=== PATIENT | female | born 1980 | race American Indian/Alaskan Native ===

== ENCOUNTER 2017-11-05 02:49 | Inpatient (IN) | payer MEDICAID ==
[2017-11-05] MEDS ORDERED: NARCAN 0.4 MG/1 ML IV PRN (04:34)
[2017-11-05] MEDS ORDERED: MINERAL OIL PO PRN (04:34)
[2017-11-05] MEDS ORDERED: XYLOCAINE 2% INFILTRATI ONE (04:34)
[2017-11-05] MEDS ORDERED: ZOFRAN IV PRN ×2 (04:34→14:47)
[2017-11-05] MEDS ORDERED: STADOL IV PRN (04:34)
[2017-11-05] MEDS ORDERED: POLYCILLIN/NS 2 GM/100 ML 2 GM/100 ML BAG IV ONE (04:34)
[2017-11-05] MEDS ORDERED: BRETHINE IVP PRN (04:34)
[2017-11-05] MEDS ORDERED: BRETHINE SUB-Q PRN (04:34)
--- NOTE | 2017-11-05 04:40 | History and Physical Report ---
History of Present Illness Date of examination: 11/05/17 Chief complaint: uterine contractions History of present illness: 37yo 38 5/7 wks LMP presented in active labor dilated /-1, GBS unknown. Her history is significant for a gestational hypertension and was being evaluated for preeclampsia at last visit last week. She was noted to have elevated BPs 180/100s therefore preeclampsia protocol was initiated with magnesium sulfate and hydralazine. She denies headaches, visual changes or RUQ pain. She is a patient of Dr. Valerie Powell'shoshana at [facility]. Her records are currently unavailable. Past History - Obstetrical History : 2 Medications and Allergies Allergies Allergy/AdvReac Type Severity Reaction Status Date / Time No Known Allergies Allergy Unverified 11/05/17 02:51 - Vital Signs Vital signs: Vital Signs Pulse Pulse Ox 74 98 11/05/17 03:03 11/05/17 03:03 Temp Pulse Resp BP Pulse Ox 68 178/88 98 11/05/17 04:28 11/05/17 04:28 11/05/17 03:18 Results Result Diagrams: 11/05/17 04:34 All other labs normal.
[2017-11-05 04:59] LABS: Hematocrit 33.1 % (30.3-42.9); Hemoglobin 11.2 gm/dl (10.1-14.3); Mean Corpuscular HGB Conc 34 % (30-34); Mean Corpuscular Hemoglobin 28 pg (28-32); Mean Corpuscular Volume 83 fl (79-97); Platelet Count 230 K/mm3 (140-440); Red Blood Count 3.98 M/mm3 (3.65-5.03); Red Cell Distribution Width 13.6 % (13.2-15.2)
[2017-11-05] MEDS ORDERED: PITOCin/NS 30 UNIT/500ML 30 UNITS/500 ML BAG IV SCH (05:00)
[2017-11-05] MEDS ORDERED: LACTATED RINGERS 1,000 ML IV SCH ×3 (05:00→22:00)
[2017-11-05] MEDS ORDERED: PITOCin/NS 20 UNIT/1000ML DRIP 20 UNITS/1,000 ML BAG IV SCH (05:00)
[2017-11-05] MEDS ORDERED: MAGNESIUM SULFATE 4GM/100ML 4 GM/100 ML BAG IV ONE ×2 (05:04→05:07)
[2017-11-05] MEDS ORDERED: MAGNESIUM SULFATE 40GM/1000ML 40 GM/1,000 ML BAG IV ONE (05:04)
[2017-11-05 05:11] LABS: Alanine Aminotransferase 17 units/L (7-56); Albumin 3.4 g/dL (3.9-5); BUN/Creatinine Ratio 17; Blood Urea Nitrogen 10 mg/dL (7-17); Hemolysis Index 45
[2017-11-05] MEDS: APRESOLINE IV PRN ×3 (05:30→12:39)
[2017-11-05] MEDS ORDERED: MAGNESIUM SULFATE 40GM/1000ML 40 GM/1,000 ML BAG IV SCH ×2 (06:00→22:00)
[2017-11-05 06:09] LABS: Uric Acid 4.7 mg/dL (3.5-7.6)
[2017-11-05 06:56] LABS: Bilirubin,Direct < 0.2 mg/dL (0-0.2)
[2017-11-05] MEDS ORDERED: NARCAN 2 MG/2 ML IV PRN (08:02)
[2017-11-05] MEDS ORDERED: fentaNYL-BUPIV 2 MCG/ML-0.125% 200 MCG/100 ML BAG EPIDURAL SCH (09:00)
--- NOTE | 2017-11-05 13:59 | Progress Note ---
Assessment and Plan (1) 38 or more weeks gestation of Current Visit: Yes Status: Acute (2) Hypertension affecting in third trimester Current Visit: Yes Status: Acute Plan to address problem: Co-managed with Dr. Verdin Continue magnesium sulfate therapy 2 gram/hr Start Tylenol 1000mg PO q8hr prn headache Continue routine BP check, magnesium level, DTRs, strict I&Os (3) Active labor Current Visit: Yes Status: Acute Plan to address problem: Continue routine labor orders Pitocin Augmentation Plan to redose epidural, Insert IUPC, and allow pt to labor down Subjective - Subjective Date of service: 11/05/17 Principal diagnosis: IUP 38w6d, Active labor, PIH Patient reports: vaginal bleeding (normal show), movement normal, contractions Objective - Vital Signs Vital Signs: Vital Signs - 12hr 11/05/17 11/05/17 11/05/17 03:03 03:05 03:08 Temperature Pulse Rate 74 71 82 Blood Pressure 158/102 O2 Sat by Pulse 98 97 Oximetry 11/05/17 11/05/17 11/05/17 03:13 03:18 03:22 Temperature Pulse Rate 72 78 70 Blood Pressure 205/109 O2 Sat by Pulse 98 98 Oximetry 11/05/17 11/05/17 11/05/17 03:30 03:56 04:08 Temperature Pulse Rate 80 68 65 Blood Pressure 180/95 166/91 169/87 O2 Sat by Pulse Oximetry 11/05/17 11/05/17 11/05/17 04:18 04:28 04:50 Temperature Pulse Rate 66 68 75 Blood Pressure 170/90 178/88 197/100 O2 Sat by Pulse Oximetry 11/05/17 11/05/17 11/05/17 05:03 05:19 05:47 Temperature Pulse Rate 73 72 78 Blood Pressure 185/99 170/96 153/80 O2 Sat by Pulse Oximetry 11/05/17 11/05/17 11/05/17 06:17 06:48 07:18 Temperature Pulse Rate 88 85 92 H Blood Pressure 149/79 166/86 161/92 O2 Sat by Pulse Oximetry 11/05/17 11/05/17 11/05/17 07:33 07:45 07:46 Temperature Pulse Rate 96 H 94 H 93 H Blood Pressure 162/98 O2 Sat by Pulse 94 93 Oximetry 0811/05/17 11/05/17 07:48 08:00 08:18 Temperature 99.1 F Pulse Rate 97 H 122 H Blood Pressure 163/96 176/101 O2 Sat by Pulse Oximetry 11/05/17 11/05/17 11/05/17 08:24 08:26 08:30 Temperature Pulse Rate 108 H 109 H 103 H Blood Pressure 151/83 142/82 141/83 O2 Sat by Pulse Oximetry 11/05/17 11/05/17 11/05/17 08:35 08:39 08:44 Temperature Pulse Rate 122 H 103 H 104 H Blood Pressure 123/83 110/68 109/67 O2 Sat by Pulse Oximetry 11/05/17 11/05/17 11/05/17 08:50 09:09 09:22 Temperature Pulse Rate 93 H 102 H 94 H Blood Pressure 126/70 142/89 144/83 O2 Sat by Pulse Oximetry 11/05/17 11/05/17 11/05/17 09:38 09:53 09:54 Temperature Pulse Rate 93 H 91 H 93 H Blood Pressure 172/91 168/87 154/89 O2 Sat by Pulse Oximetry 11/05/17 11/05/17 11/05/17 10:09 10:24 10:26 Temperature Pulse Rate 92 H 95 H 90 Blood Pressure 200/98 181/100 193/102 O2 Sat by Pulse Oximetry 11/05/17 11/05/17 11/05/17 10:27 10:32 10:38 Temperature Pulse Rate 90 101 H 108 H Blood Pressure 193/102 156/88 166/86 O2 Sat by Pulse Oximetry 11/05/17 11/05/17 11/05/17 10:45 10:52 11:00 Temperature 98.7 F Pulse Rate 115 H 106 H Blood Pressure 171/93 149/80 O2 Sat by Pulse Oximetry 11/05/17 11/05/17 11/05/17 11:09 11:25 11:39 Temperature Pulse Rate 105 H 118 H 108 H Blood Pressure 164/89 142/83 157/84 O2 Sat by Pulse Oximetry 11/05/17 11/05/17 11/05/17 11:53 12:07 12:23 Temperature Pulse Rate 108 H 113 H 125 H Blood Pressure 157/86 156/90 140/82 O2 Sat by Pulse Oximetry 11/05/17 11/05/17 11/05/17 12:39 12:41 12:43 Temperature Pulse Rate 123 H 123 H 113 H Blood Pressure 170/97 170/97 162/91 O2 Sat by Pulse Oximetry 11/05/17 11/05/17 11/05/17 12:53 13:08 13:09 Temperature 98.8 F Pulse Rate 123 H 116 H Blood Pressure 146/80 132/67 O2 Sat by Pulse Oximetry 11/05/17 11/05/17 11/05/17 13:24 13:40 13:53 Temperature Pulse Rate 131 H 117 H 125 H Blood Pressure 139/72 136/70 117/59 O2 Sat by Pulse Oximetry - Exam Breasts: normal Cardiovascular: Regular rate, Normal S1, Normal S2, No murmurs Lungs: Clear to auscultation, Normal air movement Abdomen: Present: normal appearance, soft, normal bowel sounds. Absent: distention, tenderness Vulva: both: normal Uterus: Present: normal (Enlarged (gravid)) FHR: category 1 Uterine Contraction Monitor Mode: External Cervical Dilatation: 10 Cervical Effacement Percentage: 100 station: -2 Uterine Contraction Frequency (min): 2-4 Uterine Contraction Duration: 60-140 Uterine Contraction Pattern: Regular Uterine Tone Measurement Phase: Resting Uterine Contraction Intensity: Strong/Firm Extremities: normal Deep Tendon Reflex Grade: Normal +2 - Labs Labs: Abnormal Labs 11/05/17 11/05/17 04:34 04:34 Sodium 136 L Carbon Dioxide 19 L Creatinine 0.6 L Alkaline Phosphatase 154 H Lactate Dehydrogenase 250 H Albumin 3.4 L Laboratory Results - last 24 hr 11/05/17 11/05/17 11/05/17 04:34 04:34 04:34 WBC 7.8 RBC 3.98 Hgb 11.2 Hct 33.1 MCV 83 MCH 28 MCHC 34 RDW 13.6 Plt Count 230 Sodium Potassium Chloride Carbon Dioxide Anion Gap BUN Creatinine Estimated GFR BUN/Creatinine Ratio Glucose Uric Acid Calcium Total Bilirubin Direct Bilirubin Indirect Bilirubin AST ALT Alkaline Phosphatase Lactate Dehydrogenase Total Protein Albumin Albumin/Globulin Ratio RPR Nonreactive Hep Bs Antigen HIV 1&2 Antibody Rapid HIV P24 Antigen Rubella IgG Antibody Blood Type A POSITIVE Antibody Screen Negative 11/05/17 11/05/17 11/05/17 04:34 04:34 04:34 WBC RBC Hgb Hct MCV MCH MCHC RDW Plt Count Sodium 136 L Potassium 4.1 Chloride 101.0 Carbon Dioxide 19 L Anion Gap 20 BUN 10 Creatinine 0.6 L Estimated GFR > 60 BUN/Creatinine Ratio 17 Glucose 87 Uric Acid 4.7 Calcium 9.0 Total Bilirubin 0.30 Direct Bilirubin < 0.2 Indirect Bilirubin 0.1 AST 23 ALT 17 Alkaline Phosphatase 154 H Lactate Dehydrogenase 250 H Total Protein 6.6 Albumin 3.4 L Albumin/Globulin Ratio 1.1 RPR Hep Bs Antigen HIV 1&2 Antibody Rapid HIV P24 Antigen Rubella IgG Antibody Immune Blood Type Antibody Screen 11/05/17 11/05/17 04:34 04:34 WBC RBC Hgb Hct MCV MCH MCHC RDW Plt Count Sodium Potassium Chloride Carbon Dioxide Anion Gap BUN Creatinine Estimated GFR BUN/Creatinine Ratio Glucose Uric Acid Calcium Total Bilirubin Direct Bilirubin Indirect Bilirubin AST ALT Alkaline Phosphatase Lactate Dehydrogenase Total Protein Albumin Albumin/Globulin Ratio RPR Hep Bs Antigen Non-reactive HIV 1&2 Antibody Rapid Non react HIV P24 Antigen Non react Rubella IgG Antibody Blood Type Antibody Screen
[2017-11-05] MEDS ORDERED: PHENERGAN PO PRN (14:47)
[2017-11-05] MEDS ORDERED: LANSINOH TP PRN (14:47)
[2017-11-05] MEDS ORDERED: TYLENOL PO PRN (14:47)
[2017-11-05] MEDS ORDERED: BENADRYL PO PRN (14:47)
[2017-11-05] MEDS ORDERED: TUCKS PAD TP PRN (14:47)
[2017-11-05] MEDS ORDERED: NORCO 5/325 PO PRN (14:47)
--- NOTE | 2017-11-05 14:56 | Procedure Note ---
OB Delivery Note - Delivery Date of Delivery: 11/05/17 (14:32) Surgeon: ISIDORO ZARATE (KEVIN) Estimated blood loss: 200cc - Vaginal Delivery presentation: vertex Delivery position: OA Intrapartum events: other(please specify) (PIH, [id number]) Delivery induction: none Delivery augmentation: pitocin Delivery monitor: external FHT, external uterine Route of delivery: (14:32) Delivery placenta: spontaneous (14:35) Delivery cord: 3 umbilical vessels Episiotomy: none Delivery laceration: none Anesthesia: epidural Delivery comments: viable male infant JODI position over intact perineum under epidural anesthesia at 14:32. Infant less vigorous d/t MgS04. Cord clamped, cut, and placed in pre-warmed RW for evaluation NICU/RT (MgS04). Spontaneous howard delivery of intact placenta at 14:35. FF@U-2. No tears or lacerations. Bleeding small. and mother left in stable condition in L&D. GBS Negative
[2017-11-05] MEDS ORDERED: SODIUM CHLORIDE FLUSH SYRINGE 10 ML IV NR (15:00)
[2017-11-05] MEDS ORDERED: MILK OF MAGNESIA PO PRN (22:00)
[2017-11-05] MEDS ORDERED: DULCOLAX PR PRN (22:00)
[2017-11-05] MEDS: NORMODYNE PO SCH (22:30)
[2017-11-06 06:54] LABS: Hematocrit 27.9 % (30.3-42.9); Hemoglobin 9.5 gm/dl (10.1-14.3)
--- NOTE | 2017-11-06 10:09 | Progress Note ---
Assessment and Plan - Patient Problems (1) 38 weeks gestation of Current Visit: Yes Status: Acute (2) Pre-eclampsia Current Visit: Yes Status: Acute Plan to address problem: Continue magnesium sulfate. Mg level ordered. Will D/C Mg at 2 PM today. Continue to monitor BP, DTRs, mg level, urine output. (3) (normal spontaneous vaginal delivery) Current Visit: Yes Status: Acute Plan to address problem: Continue routine care. Subjective - Subjective Date of service: 11/06/17 Principal diagnosis: IUP 38w6d, Active labor, PIH Interval history: Patient is S/P yesterday. She has been on magnesium for pre-eclampsia. BP has been stable. She is on labetolol. Objective - Vital Signs Latest vital signs: Vital Signs Temp Pulse Resp BP BP Pulse Ox 11/06/17 07:30 97.6 F 79 16 149/85 98 11/06/17 06:00 98.4 F 69 16 112/66 11/06/17 04:00 98.7 F 72 16 101/74 11/06/17 03:10 98.7 F 69 18 117/64 11/06/17 01:00 98.7 F 74 16 127/71 11/05/17 23:00 98.7 F 81 16 134/80 11/05/17 22:30 84 134/74 11/05/17 21:30 98.6 F 81 18 144/88 11/05/17 19:30 98.7 F 117 H 18 146/100 11/05/17 17:03 164/94 11/05/17 16:15 97.6 F 98 H 18 188/99 99 11/05/17 15:38 99 H 166/81 11/05/17 15:31 98.7 F 11/05/17 15:23 110 H 133/75 11/05/17 15:08 107 H 141/75 11/05/17 14:53 114 H 110/59 11/05/17 14:44 100 H 117/58 11/05/17 14:08 117 H 112/58 11/05/17 13:53 125 H 117/59 11/05/17 13:40 117 H 136/70 11/05/17 13:24 131 H 139/72 11/05/17 13:09 98.8 F 11/05/17 13:08 116 H 132/67 11/05/17 12:53 123 H 146/80 11/05/17 12:43 113 H 162/91 11/05/17 12:41 123 H 170/97 11/05/17 12:39 123 H 170/97 11/05/17 12:23 125 H 140/82 11/05/17 12:07 113 H 156/90 11/05/17 11:53 108 H 157/86 11/05/17 11:39 108 H 157/84 11/05/17 11:25 118 H 142/83 11/05/17 11:09 105 H 164/89 11/05/17 11:00 98.7 F 11/05/17 10:52 106 H 149/80 11/05/17 10:45 115 H 171/93 11/05/17 10:38 108 H 166/86 11/05/17 10:32 101 H 156/88 11/05/17 10:27 90 193/102 11/05/17 10:26 90 193/102 11/05/17 10:24 95 H 181/100 11/05/17 10:09 92 H 200/98 Intake and Output 11/05/17 11/06/17 11/06/17 23:59 07:59 15:59 Intake Total 500 300 Output Total 2800 3200 Balance -2300 -2900 Intake: Oral 200 Intake, Free Water 300 300 Output: Urine 2800 3200 Indwelling Catheter 2000 3200 Void 800 Other: Total, Intake Amount 200 Total, Output Amount 1600 1600 # Voids Void 1 - Exam Cardiovascular: Present: Normal S1, Normal S2 Lungs: Present: Clear to auscultation Vulva: both: normal Deep Tendon Reflex Grade: Normal +2 - Labs Labs: Abnormal lab results 11/06/17 Range/Units 05:53 Hgb 9.5 L (10.1-14.3) gm/dl Hct 27.9 L (30.3-42.9) %
[2017-11-06] MEDS: NORMODYNE PO SCH ×2 (11:41→21:56)
[2017-11-06] MEDS: MOTRIN PO SCH (23:12)
[2017-11-07] MEDS: MOTRIN PO SCH (05:25)
--- NOTE | 2017-11-07 11:56 | Progress Note ---
Assessment and Plan - Patient Problems (1) (normal spontaneous vaginal delivery) Onset Date: 11/07/17 Current Visit: Yes Status: Resolved Plan to address problem: A: S/P - PPD #2 Doing well PIH - improved s/p Magnesium sulfate and PO Labetolol 200mg BID P: May go home today. (2) Pre-eclampsia Onset Date: 11/07/17 Current Visit: Yes Status: Resolved Qualifiers: Trimester: third trimester Qualified Code(s): O14.93 - Unspecified pre- eclampsia, third trimester Subjective - Subjective Date of service: 11/07/17 Principal diagnosis: s/p - PPD #2 Interval history: Pt is feeling well without complaints. Bleeding improved. Denies headaches or blurred vision. Patient reports: appetite normal, voiding normally, pain well controlled, flatus , ambulating normally, no dizzy ambulation, no nauseated [place]: doing well, bottle feeding Objective - Vital Signs Latest vital signs: Vital Signs Temp Pulse Resp BP BP Pulse Ox 11/07/17 00:50 98.6 F 77 20 135/71 97 11/06/17 21:56 77 136/79 11/06/17 21:45 78 20 136/79 97 11/06/17 17:50 98.0 F 80 16 152/85 98 Intake and Output 11/06/17 11/07/17 11/07/17 22:59 06:59 14:59 Intake Total 480 Balance 480 Intake: Oral 480 Other: Total, Intake Amount 240 # Voids Void 1 - Exam Breasts: Present: deferred Cardiovascular: Present: Regular rate Lungs: Present: Clear to auscultation Abdomen: Present: normal appearance, soft Uterus: Present: normal, firm, fundal height below umbilicus Extremities: Present: normal
--- NOTE | 2017-11-07 12:09 | Discharge Summary ---
Providers - Providers Date of Admission: 11/05/17 04:38 Date of discharge: 11/07/17 Attending physician: BRIAN MONTANO Primary care physician: BRIAN MONTANO Hospitalization Reason for admission: active labor, IUP at term, other (Preeclampsia) Delivery: Episiotomy: none Laceration: none Other procedures: none complications: none Discharge diagnosis: IUP at term delivered [place] baby: male Hospital course: Unremarkable except for suspected preeclampsia - treated with IV Magensium sulfates and PO Labetolol 200mg BID. Condition at discharge: Good Disposition: DC-01 TO HOME OR SELFCARE - Discharge Diagnoses (1) (normal spontaneous vaginal delivery) Status: Resolved (2) Pre-eclampsia Status: Resolved Qualifiers: Trimester: third trimester Qualified Code(s): O14.93 - Unspecified pre- eclampsia, third trimester Plan - Discharge Medications Prescriptions: Ferrous Sulfate [Feosol 325 MG tab] 325 mg PO BID #60 tablet Labetalol [Normodyne TAB] 200 mg PO BID #60 tablet Vit Calc,Iron,Folic [ Vitamins] 1 each PO DAILY #30 tablet - Provider Discharge Summary Activity: routine, no sex for 6 weeks, no heavy lifting 4 weeks, no strenuous exercise Diet: routine Instructions: routine Additional instructions: [] Smoking cessation referral if applicable(refer to patient education folder for contact #) [] Refer to [facility] Booklet Call your doctor immediately for: * Fever > 100.5 * Heavy vaginal bleeding ( >1 pad per hour) * Severe persistent headache * Shortness of breath * Reddened, hot, painful area to leg or breast * Drainage or odor from incision. * Keep incision clean and dry at all times and follow doctor's instructions regarding bathing/showering Follow up in office in 1 week for BP check - Follow up plan Follow up: DELANEY PENDLETON CNM [Advanced Practice Nurse] - 7 Days BRIAN MONTANO MD [Primary Care Provider] - 6 Weeks
[2017-11-07] MEDS: NORMODYNE PO SCH (13:15)
[2017-11-07 16:36] VITALS: BP 147/72
== END 2017-11-07 17:05 | disposition home or self-care (01) | DRG 774 ==
LOC: TRG 02:49 → LD 04:38 → OB 16:49
PROVIDERS: ADMIT Obstetrics & Gynecology; ATTEND Obstetrics & Gynecology
PROC: 10E0XZZ Delivery of Products of Conception, External Approach (ICD-10-PCS; principal; 2017-11-05)
PROC: 3E0R3BZ Introduction of Anesthetic Agent into Spinal Canal, Percutaneous Approach (ICD-10-PCS; 2017-11-05)
PROC: 00HU33Z Insertion of Infusion Device into Spinal Canal, Percutaneous Approach (ICD-10-PCS; 2017-11-05)
PROC: 10H07YZ Insertion of Other Device into Products of Conception, Via Natural or Artificial Opening (ICD-10-PCS; 2017-11-05)
DX: O13.4 Gestational [pregnancy-induced] hypertension without significant proteinuria, complicating childbirth (principal); O14.94 Unspecified pre-eclampsia, complicating childbirth; Z3A.38 38 weeks gestation of pregnancy; Z37.0 Single live birth
CPT/HCPCS: 36415; 80048; 80074; 83615; 83735; 84550; 85014; 85018; 85027; 86592; 86706; 86762; 86850; 86900; 86901; 87806; J0290; J0360; J0595; J2405; J2590; J3475; J7120

== ENCOUNTER 2018-05-13 02:16 | Day surgery (SDC) | payer MEDICAID ==
[2018-05-13 03:58] LABS: Basophils % (Auto) 0.7 % (0.0-1.8); Eosinophils % (Auto) 0.7 % (0.0-4.3); Hematocrit 34.4 % (30.3-42.9); Hemoglobin 11.5 gm/dl (10.1-14.3); Lymphocytes # (Auto) 1.2 K/mm3 (1.2-5.4); Lymphocytes % (Auto) 18.2 % (13.4-35.0); Mean Corpuscular HGB Conc 34 % (30-34); Mean Corpuscular Volume 84 fl (79-97); Monocytes # (Auto) 0.3 K/mm3 (0.0-0.8); Monocytes % (Auto) 5.1 % (0.0-7.3); Platelet Count 215 K/mm3 (140-440); Red Blood Count 4.08 M/mm3 (3.65-5.03); Red Cell Distribution Width 14.2 % (13.2-15.2)
--- NOTE | 2018-05-13 04:04 | Emergency Department Report ---
ED Female HPI - General Chief complaint: Abdominal Pain Stated complaint: VAGINAL BLEEDING, ABDOMINAL PAIN Time Seen by Provider: 05/13/18 03:35 Source: patient Mode of arrival: Ambulatory Limitations: No Limitations - History of Present Illness Initial comments: Patient complained of sudden onset of vaginal bleeding and lower abdominal cramps which started yesterday. She says she want a test keeps at home she tested positive for . Patient also said that she delivered a baby in October last year. Complaint: vaginal bleeding -: days(s) (1 day) Location: perineum Radiation: non-radiating Severity: moderate Severity scale (0 -10): 5 Quality: cramping Consistency: constant Improves with: none Worsens with: none Are you Now?: Yes Associated Symptoms: vaginal bleeding - Related Data Sexually active: Yes Previous Rx's Medication Instructions Recorded Last Taken Type Ferrous Sulfate [Feosol 325 MG tab] 325 mg PO BID #60 tablet 11/07/17 Unknown Rx Labetalol [Normodyne TAB] 200 mg PO BID #60 tablet 11/07/17 Unknown Rx Vit Calc,Iron,Folic 1 each PO DAILY #30 tablet 11/07/17 Unknown Rx [ Vitamins] Ibuprofen [Motrin] 800 mg PO Q8HR PRN #30 tablet 05/13/18 Unknown Rx Methylergonovine [Methergine] 0.2 mg PO Q8HR #6 tablet 05/13/18 Unknown Rx metroNIDAZOLE [Flagyl] 500 mg PO Q12HR #14 tab 05/13/18 Unknown Rx Allergies Allergy/AdvReac Type Severity Reaction Status Date / Time No Known Allergies Allergy Unverified 11/05/17 02:51 ED Review of Systems ROS: Stated complaint: VAGINAL BLEEDING, ABDOMINAL PAIN Other details as noted in HPI Comment: All other systems reviewed and negative Constitutional: denies: chills, fever Eyes: denies: eye pain, eye discharge, vision change ENT: denies: ear pain, throat pain Respiratory: denies: cough, shortness of breath, wheezing Cardiovascular: denies: chest pain, palpitations Endocrine: no symptoms reported Gastrointestinal: abdominal pain. denies: nausea, diarrhea Genitourinary: other (Vaginal bleeding.). denies: urgency, dysuria, discharge Musculoskeletal: denies: back pain, joint swelling, arthralgia Skin: denies: rash, lesions Neurological: denies: headache, weakness, paresthesias Psychiatric: denies: anxiety, depression Hematological/Lymphatic: denies: easy bleeding, easy bruising ED Past Medical Hx - Past Medical History Previous Medical History?: Yes Hx Hypertension: Yes Hx Congestive Heart Failure: No Hx Diabetes: No Hx Deep Vein Thrombosis: No Hx Renal Disease: No Hx Sickle Cell Disease: No Hx Seizures: No Hx Asthma: No Hx COPD: No - Surgical History Past Surgical History?: No - Social History Smoking Status: Never Smoker Substance Use Type: None - Medications Home Medications: Home Medications Medication Instructions Recorded Confirmed Last Taken Type Ferrous Sulfate [Feosol 325 MG tab] 325 mg PO BID #60 tablet 11/07/17 Unknown Rx Labetalol [Normodyne TAB] 200 mg PO BID #60 tablet 11/07/17 Unknown Rx Vit Calc,Iron,Folic 1 each PO DAILY #30 tablet 11/07/17 Unknown Rx [ Vitamins] Ibuprofen [Motrin] 800 mg PO Q8HR PRN #30 tablet 05/13/18 Unknown Rx Methylergonovine [Methergine] 0.2 mg PO Q8HR #6 tablet 05/13/18 Unknown Rx metroNIDAZOLE [Flagyl] 500 mg PO Q12HR #14 tab 05/13/18 Unknown Rx ED Physical Exam - General Limitations: No Limitations General appearance: alert, in no apparent distress - Head Head exam: Present: atraumatic, normocephalic, normal inspection - Eye Eye exam: Present: normal appearance, PERRL, EOMI Pupils: Present: normal accommodation - ENT ENT exam: Present: normal exam, normal orophraynx, mucous membranes moist - Neck Neck exam: Present: normal inspection, full ROM. Absent: tenderness - Respiratory Respiratory exam: Present: normal lung sounds bilaterally. Absent: respiratory distress - Cardiovascular Cardiovascular Exam: Present: regular rate, normal rhythm. Absent: systolic murmur, diastolic murmur, rubs, gallop - GI/Abdominal GI/Abdominal exam: Present: soft, normal bowel sounds - Rectal Rectal exam: Present: deferred - External exam: Present: normal external exam. Absent: lesions, lacerations Speculum exam: Present: vaginal bleeding, tissue, other (Cell Biologist was Ms. Darshan hampton RN.) Bi-manual exam: Present: other (Not done.) - Extremities Exam Extremities exam: Present: normal inspection, full ROM, normal capillary refill - Back Exam Back exam: Present: normal inspection, full ROM. Absent: tenderness - Neurological Exam Neurological exam: Present: alert, oriented X3, CN II-XII intact - Psychiatric Psychiatric exam: Present: normal affect, normal mood - Skin Skin exam: Present: warm, dry, intact, normal color. Absent: rash ED Course Vital Signs 05/13/18 05/13/18 05/13/18 02:25 03:00 03:10 Temperature 98.4 F 98.4 F Pulse Rate 78 80 Respiratory 18 18 18 Rate Blood Pressure 194/106 194/106 Blood Pressure [Left] O2 Sat by Pulse 100 100 100 Oximetry 05/13/18 05/13/18 05/13/18 05:22 05:23 06:30 Temperature 97.6 F Pulse Rate 71 71 71 Respiratory 16 18 Rate Blood Pressure 174/100 Blood Pressure 174/100 149/89 [Left] O2 Sat by Pulse 99 100 Oximetry - Reevaluation(s) Reevaluation #1: 05/13/18 07:12 Patient was signed out to Dr Sofie Morgan pending Dr Valerie Powell evaluation. Disposition per Dr Jesus Alberto Powell recommendation. - Consultations Consultation #1: 05/13/18 06:[address] Jesus Alberto Powell the OBGYN attending seasonal recruiter and he said he will come to the Ed to evaluate patient. ED Medical Decision Making - Lab Data Result diagrams: 05/13/18 03:40 05/13/18 03:40 Lab Results 05/13/18 05/13/18 05/13/18 Range/Units 03:40 03:40 03:40 WBC 6.5 (4.5-11.0) K/mm3 RBC 4.08 (3.65-5.03) M/mm3 Hgb 11.5 (10.1-14.3) gm/dl Hct 34.4 (30.3-42.9) % MCV 84 (79-97) fl MCH 28 (28-32) pg MCHC 34 (30-34) % RDW 14.2 (13.2-15.2) % Plt Count 215 (140-440) K/mm3 Lymph % (Auto) 18.2 (13.4-35.0) % [place] % (Auto) 5.1 (0.0-7.3) % Eos % (Auto) 0.7 (0.0-4.3) % Baso % (Auto) 0.7 (0.0-1.8) % Lymph # 1.2 (1.2-5.4) K/mm3 [place] # 0.3 (0.0-0.8) K/mm3 Eos # 0.0 (0.0-0.4) K/mm3 Baso # 0.0 (0.0-0.1) K/mm3 Seg Neutrophils % 75.3 H (40.0-70.0) % Seg Neutrophils # 4.9 (1.8-7.7) K/mm3 PT (12.2-14.9) Sec. INR (0.87-1.13) APTT (24.2-36.6) Sec. Sodium 135 L (137-145) mmol/L Potassium 3.9 (3.6-5.0) mmol/L Chloride 98.4 (98-107) mmol/L Carbon Dioxide 25 (22-30) mmol/L Anion Gap 16 mmol/L BUN 16 (7-17) mg/dL Creatinine 0.7 (0.7-1.2) mg/dL Estimated GFR > 60 ml/min BUN/Creatinine Ratio 23 % Glucose 152 H (65-100) mg/dL Calcium 8.9 (8.4-10.2) mg/dL Total Bilirubin 0.20 (0.1-1.2) mg/dL Direct Bilirubin (0-0.2) mg/dL AST 15 (5-40) units/L ALT 13 (7-56) units/L Alkaline Phosphatase 70 (35-129) units/L Total Protein 7.4 (6.3-8.2) g/dL Albumin 4.2 (3.9-5) g/dL Albumin/Globulin Ratio 1.3 % Lipase (13-60) units/L HCG, Quant 9873 H (0-4) mIU/mL Urine Color (Yellow) Urine Turbidity (Clear) Urine pH (5.0-7.0) Ur Specific [place] (1.003-1.030) Urine Protein (Negative) mg/dL Urine Glucose (UA) (Negative) mg/dL Urine Ketones (Negative) mg/dL Urine Blood (Negative) Urine Nitrite (Negative) Urine Bilirubin (Negative) Urine Urobilinogen (<2.0) mg/dL Ur Leukocyte Esterase (Negative) Urine WBC (Auto) (0.0-6.0) /HPF Urine RBC (Auto) (0.0-6.0) /HPF Blood Type Antibody Screen 05/13/18 05/13/18 05/13/18 Range/Units 03:40 03:40 04:37 WBC (4.5-11.0) K/mm3 RBC (3.65-5.03) M/mm3 Hgb (10.1-14.3) gm/dl Hct (30.3-42.9) % MCV (79-97) fl MCH (28-32) pg MCHC (30-34) % RDW (13.2-15.2) % Plt Count (140-440) K/mm3 Lymph % (Auto) (13.4-35.0) % [place] % (Auto) (0.0-7.3) % Eos % (Auto) (0.0-4.3) % Baso % (Auto) (0.0-1.8) % Lymph # (1.2-5.4) K/mm3 [place] # (0.0-0.8) K/mm3 Eos # (0.0-0.4) K/mm3 Baso # (0.0-0.1) K/mm3 Seg Neutrophils % (40.0-70.0) % Seg Neutrophils # (1.8-7.7) K/mm3 PT (12.2-14.9) Sec. INR (0.87-1.13) APTT (24.2-36.6) Sec. Sodium (137-145) mmol/L Potassium (3.6-5.0) mmol/L Chloride (98-107) mmol/L Carbon Dioxide (22-30) mmol/L Anion Gap mmol/L BUN (7-17) mg/dL Creatinine (0.7-1.2) mg/dL Estimated GFR ml/min BUN/Creatinine Ratio % Glucose (65-100) mg/dL Calcium (8.4-10.2) mg/dL Total Bilirubin 0.20 (0.1-1.2) mg/dL Direct Bilirubin < 0.2 (0-0.2) mg/dL AST 15 (5-40) units/L ALT 13 (7-56) units/L Alkaline Phosphatase 69 (35-129) units/L Total Protein 7.4 (6.3-8.2) g/dL Albumin 4.3 (3.9-5) g/dL Albumin/Globulin Ratio 1.4 % Lipase 23 (13-60) units/L HCG, Quant (0-4) mIU/mL Urine Color Red (Yellow) Urine Turbidity Cloudy (Clear) Urine pH 7.0 (5.0-7.0) Ur Specific [place] 1.013 (1.003-1.030) Urine Protein 100 mg/dl (Negative) mg/dL Urine Glucose (UA) 50 (Negative) mg/dL Urine Ketones Neg (Negative) mg/dL Urine Blood Lg (Negative) Urine Nitrite Neg (Negative) Urine Bilirubin Neg (Negative) Urine Urobilinogen < 2.0 (<2.0) mg/dL Ur Leukocyte Esterase Neg (Negative) Urine WBC (Auto) 25.0 H (0.0-6.0) /HPF Urine RBC (Auto) > 182.0 (0.0-6.0) /HPF Blood Type A POSITIVE Antibody Screen Negative 05/13/18 05/13/18 Range/Units 04:51 04:51 WBC (4.5-11.0) K/mm3 RBC (3.65-5.03) M/mm3 Hgb (10.1-14.3) gm/dl Hct (30.3-42.9) % MCV (79-97) fl MCH (28-32) pg MCHC (30-34) % RDW (13.2-15.2) % Plt Count (140-440) K/mm3 Lymph % (Auto) (13.4-35.0) % [place] % (Auto) (0.0-7.3) % Eos % (Auto) (0.0-4.3) % Baso % (Auto) (0.0-1.8) % Lymph # (1.2-5.4) K/mm3 [place] # (0.0-0.8) K/mm3 Eos # (0.0-0.4) K/mm3 Baso # (0.0-0.1) K/mm3 Seg Neutrophils % (40.0-70.0) % Seg Neutrophils # (1.8-7.7) K/mm3 PT 13.1 (12.2-14.9) Sec. INR 0.94 (0.87-1.13) APTT 32.6 (24.2-36.6) Sec. Sodium (137-145) mmol/L Potassium (3.6-5.0) mmol/L Chloride (98-107) mmol/L Carbon Dioxide (22-30) mmol/L Anion Gap mmol/L BUN (7-17) mg/dL Creatinine (0.7-1.2) mg/dL Estimated GFR ml/min BUN/Creatinine Ratio % Glucose (65-100) mg/dL Calcium (8.4-10.2) mg/dL Total Bilirubin (0.1-1.2) mg/dL Direct Bilirubin (0-0.2) mg/dL AST (5-40) units/L ALT (7-56) units/L Alkaline Phosphatase (35-129) units/L Total Protein (6.3-8.2) g/dL Albumin (3.9-5) g/dL Albumin/Globulin Ratio % Lipase (13-60) units/L HCG, Quant (0-4) mIU/mL Urine Color (Yellow) Urine Turbidity (Clear) Urine pH (5.0-7.0) Ur Specific [place] (1.003-1.030) Urine Protein (Negative) mg/dL Urine Glucose (UA) (Negative) mg/dL Urine Ketones (Negative) mg/dL Urine Blood (Negative) Urine Nitrite (Negative) Urine Bilirubin (Negative) Urine Urobilinogen (<2.0) mg/dL Ur Leukocyte Esterase (Negative) Urine WBC (Auto) (0.0-6.0) /HPF Urine RBC (Auto) (0.0-6.0) /HPF Blood Type Antibody Screen - Radiology Data Radiology results: report reviewed, image reviewed Ultrasound showed an in progress per radiologist. - Medical Decision Making Vaginal Bleeding. Incomplete . Early . Critical care attestation.: If time is entered above; I have spent that time in minutes in the direct care of this critically ill patient, excluding procedure time. ED Disposition Clinical Impression: Vaginal bleeding affecting early , Incomplete Disposition: TO HOME OR SELFCARE Is pt being admited?: No Does the pt Need Aspirin: No Condition: Good
[2018-05-13 04:24] LABS: Alanine Aminotransferase 13 units/L (7-56); Albumin 4.2 g/dL (3.9-5); BUN/Creatinine Ratio 23; Blood Urea Nitrogen 16 mg/dL (7-17); Calcium 8.9 mg/dL (8.4-10.2); Hemolysis Index 0
[2018-05-13 04:29] LABS: Alanine Aminotransferase 13 units/L (7-56); Albumin 4.3 g/dL (3.9-5)
[2018-05-13 04:40] LABS: Bilirubin,Direct < 0.2 mg/dL (0-0.2)
[2018-05-13] MEDS ORDERED: LOPRESSOR IV ONE (05:02)
[2018-05-13 05:08] LABS: Bilirubin,Urine NEG (Negative); Blood,Urine LG (Negative); Color,Urine Red (Yellow); Urobilinogen,Urine < 2.0 mg/dL (<2.0)
[2018-05-13 05:20] LABS: RBC,Urine > 182.0 /HPF (0.0-6.0)
[2018-05-13 05:29] LABS: INR 0.94 (0.87-1.13)
--- NOTE | 2018-05-13 06:38 | Ultrasound Report ---
FINAL REPORT EXAM: US OB TRANSVAGINAL HISTORY: Vaginal bleeding COMPARISONS: None. FINDINGS: Transvaginal grayscale and color Doppler pelvic ultrasound Anteverted uterus measures 12.5 x 5.6 x 6.1 cm. Myometrium is within normal limits. The endometrium m easures up to 2.7 cm in thickness. A fluid-filled sac is present in the lower uterine segment portion of the endometrium extending near and possibly into the internal cervical os with mean diameter of a pproximately 16 millimeters, which would correspond to an estimated gestational age of 6 weeks 3 days . No yolk sac or pole identified within the structure. No free fluid in the pelvis. The ovaries demonstrate normal echotexture and color Doppler evaluation and measure 3.2 x 1.7 x 2.5 c m on the right and 3.3 x 1.8 x 2.2 cm on the left. IMPRESSION: Probable gestational sac in the lower portion of the endometrium near the internal cervical os shows no yolk sac or pole. Question spontaneous progress, given history. No findings of ecto pic/heterotopic . Close interval clinical and sonographic follow-up are suggested. Dr. Starr discussed findings with Dr. Espitia at 0533 central Time on 05/13/2018 immediately following the examination.
--- NOTE | 2018-05-13 06:38 | Ultrasound Report ---
FINAL REPORT EXAM: US OB < = 14 WEEKS FETUS HISTORY: Vaginal bleeding COMPARISONS: None. FINDINGS: Transabdominal grayscale and color Doppler pelvic ultrasound Anteverted uterus measures 12.5 x 5.6 x 6.1 cm. Myometrium is within normal limits. The endometrium m easures up to 2.7 cm in thickness. A fluid-filled sac is present in the lower uterine segment portion of the endometrium extending near and possibly into the internal cervical os with mean diameter of a pproximately 16 millimeters. No yolk sac or pole identified within the structure. No free fluid in the pelvis. The ovaries demonstrate normal echotexture and color Doppler evaluation and measure 3.2 x 1.7 x 2.5 c m on the right and 3.3 x 1.8 x 2.2 cm on the left. IMPRESSION: Probable gestational sac in the lower portion of the endometrium near the internal cervical os shows no yolk sac or pole. Question spontaneous progress, given history. No findings of ecto pic/heterotopic . Close interval clinical and sonographic follow-up are suggested.
--- NOTE | 2018-05-13 07:29 | Short Stay Summary ---
Short Stay Documentation Date of service: 05/13/18 Narrative H&P: Pt is a 38yo BF LMP 03/09/18 presents to [facility] ER complaining of vaginal bleeding. Bhcg was 9876 and Pelvic u/s showed gestational sac in the lower uterine segment - in progress. She will therefore be scheduled for a D&C. - History Principal diagnosis: Incomplete H&P: obtained from office Past Medical History: hypertension Past Surgical History: No surgical history Social history: no significant social history, - Allergies and Medications Current Medications: Allergies No Known Allergies Allergy (Unverified 11/05/17 02:51) Home Medications Medication Instructions Recorded Confirmed Last Taken Type Ferrous Sulfate [Feosol 325 MG tab] 325 mg PO BID #60 tablet 11/07/17 Unknown Rx Labetalol [Normodyne TAB] 200 mg PO BID #60 tablet 11/07/17 Unknown Rx Vit Calc,Iron,Folic 1 each PO DAILY #30 tablet 11/07/17 Unknown Rx [ Vitamins] - Physical exam General appearance: mild distress Integumentary: no rash HEENT: Atraumatic Lungs: Clear to auscultation Breasts: deferred Heart: Regular rate Gastrointestinal: normal Female Genitourinary: deferred Rectal Exam: deferred Extremities: no ischemia, No edema Neurological: Normal gait, Normal speech - Brief post op/procedure progress note Date of procedure: 05/13/18 Pre-op diagnosis: Incomplete Post-op diagnosis: same Procedure: Dilatation and curettage Anesthesia: MAC Findings: A 10-12 week size uterus with large amounts of products of conception, blood and blood clots. Surgeon: BRIAN MONTANO Estimated blood loss: 50-100ml Pathology: list (POC) Specimen disposition: to lab Condition: stable - Hospital course Hospital course: Unremarkable. - Disposition Condition at discharge: Good Disposition: DC-01 TO HOME OR SELFCARE - Discharge Diagnoses (1) Incomplete Status: Resolved Short Stay Discharge Plan Activity: no restrictions Diet: regular Follow up with: PRIMARY CAREMD [Primary Care Provider] - 3-5 Days BRIAN MONTANO MD [Staff Physician] - 14 Days Prescriptions: Ibuprofen [Motrin] 800 mg PO Q8HR PRN #30 tablet PRN Reason: Pain, Moderate (4-6) Methylergonovine [Methergine] 0.2 mg PO Q8HR #6 tablet metroNIDAZOLE [Flagyl] 500 mg PO Q12HR #14 tab
[2018-05-13] MEDS ORDERED: ANCEF/STERILE WATER 2 GM/20 ML 2 GM/20 ML SYRINGE IV NR (08:00)
[2018-05-13] MEDS ORDERED: LACTATED RINGERS 1,000 ML IV SCH (08:00)
[2018-05-13] MEDS ORDERED: VERSED ONE (08:28)
[2018-05-13] MEDS ORDERED: DIPRIVAN 10 MG/ML IV ONE (08:29)
[2018-05-13] MEDS ORDERED: SUBLIMAZE ONE ×2 (08:29→09:35)
[2018-05-13] MEDS ORDERED: SUBLIMAZE IV PRN (08:30)
[2018-05-13] MEDS ORDERED: ZOFRAN IV PRN (08:30)
--- NOTE | 2018-05-13 08:31 | Anesthesia Day of Surgery ---
Anesthesia Day of Surgery - Day of Surgery Patient Examined: Yes Patient H&P Reviewed: Yes Patient is NPO: Yes
--- NOTE | 2018-05-13 08:33 | Anesthesia Consultation ---
Anesthesia Consult and Med Hx Date of service: 05/13/18 - Airway Anesthetic Teeth Evaluation: Caps, Crowns ROM Head & Neck: Adequate Mental/Hyoid Distance: Adequate Mallampati Class: Class II Intubation Access Assessment: Probably Good - Pre-Operative Health Status ASA Pre-Surgery Classification: ASA2, Emergency Proposed Anesthetic Plan: General - Pulmonary Hx Asthma: No COPD: No Hx Pneumonia: No - Cardiovascular System Hx Hypertension: Yes (Self-d/c'd lisinopril) - Central Nervous System Hx Seizures: No Hx Psychiatric Problems: No - Endocrine Hx Renal Disease: No Hx End Stage Renal Disease: No Hx Hypothyroidism: No Hx Hyperthyroidism: No - Hematic Hx Anemia: Yes (8weeks missed AB) Hx Sickle Cell Disease: No - Other Systems Hx Alcohol Use: Yes
[2018-05-13] MEDS ORDERED: LACTATED RINGERS 1,000 ML ONE (08:55)
[2018-05-13] MEDS ORDERED: NORMODYNE IV PRN (09:52)
[2018-05-13] MEDS ORDERED: NORMODYNE IV ONE (09:54)
--- NOTE | 2018-05-13 10:01 | Operative Report ---
Operative Report Operative Report: PREOPERATIVE DIAGNOSIS: Incomplete POSTOPERATIVE DIAGNOSIS: Same OPERATIVE PROCEDURE: Dilatation and curettage. SURGEON: Jesus Alberto Powell MD ANESTHESIA: Gen. mask ANESTHESIOLOGIST: Dr. Gaona ESTIMATED BLOOD LOSS: 100 mls FINDINGS: A 10-12 week size uterus with large amounts of products of conception, blood and blood clots COMPLICATIONS: None COUNTS: Correct x3. PROCEDURE: After the patient was correctly identified as the patient, and after general anesthesia was administered, the patient was prepped and draped in the usual sterile fashion and placed in dorsal lithotomy position. First, the bladder was emptied using a straight catheter. Next, a speculum was placed in the vaginal vault and the anterior lip of the cervix was grasped using a single- tooth tenaculum. The uterus was sounded to 12 cm. The cervical os was sequentially dilated, and a 12 mm vaccurette was used to suction blood and products of conception from the uterine cavity. After all the products of conception were removed, the procedure was considered complete. All instruments were removed from the vagina. The patient tolerated the procedure well and was transferred to the recovery room in stable condition.
--- NOTE | 2018-05-13 10:24 | Post Anesthesia Evaluation ---
- Post Anesthesia Evaluation Patient Participated: Yes Airway Patent: Yes Stable Respiratory Function: Yes Nausea/Vomiting: No Temp > 96.8F: Yes Pain Manageable: Yes Adequeate Hydration: Yes Anesthesia Complications: No Block Receding Appropriately: Not Applicable Patient on Ventilator: No
[2018-05-13 10:41] VITALS: BP 145/92
== END 2018-05-13 09:00 | disposition home or self-care (01) ==
LOC: OR 02:16 → ED 02:16 → EDSTATUS 09:13 → OR 11:02
PROVIDERS: ATTEND Emergency Medicine Pediatric Emergency Medicine
DX: O03.4 Incomplete spontaneous abortion without complication (principal); I10 Essential (primary) hypertension; Z72.89 Other problems related to lifestyle; Z80.8 Family history of malignant neoplasm of other organs or systems; Z79.899 Other long term (current) drug therapy; Z82.49 Family history of ischemic heart disease and other diseases of the circulatory system
CPT/HCPCS: 36415; 59812; 76801; 76817; 80053; 80076; 81001; 83690; 84702; 85025; 85610; 85730; 86850; 86900; 86901; 87210; 87591; 88305; 99285; J2250; J2704; J3010; J7120

== ENCOUNTER 2018-10-28 09:07 | Emergency (ER) | payer MEDICAID, OTHER ==
[2018-10-28 09:15] VITALS: BP 158/95
[2018-10-28 10:32] LABS: Basophils % (Auto) 0.3 % (0.0-1.8); Eosinophils # (Auto) 0.1 K/mm3 (0.0-0.4); Eosinophils % (Auto) 2.5 % (0.0-4.3); Hematocrit 36.2 % (30.3-42.9); Hemoglobin 12.2 gm/dl (10.1-14.3); Lymphocytes # (Auto) 1.3 K/mm3 (1.2-5.4); Lymphocytes % (Auto) 25.6 % (13.4-35.0); Mean Corpuscular HGB Conc 34 % (30-34); Mean Corpuscular Volume 86 fl (79-97); Monocytes # (Auto) 0.3 K/mm3 (0.0-0.8); Monocytes % (Auto) 6.1 % (0.0-7.3); Platelet Count 216 K/mm3 (140-440); Red Blood Count 4.22 M/mm3 (3.65-5.03)
[2018-10-28 10:40] LABS: Bilirubin,Urine NEG (Negative); Blood,Urine NEG (Negative); Color,Urine Yellow (Yellow); Mucus,Urine FEW /HPF; Protein,Urine <15 mg/dL mg/dL (Negative)
[2018-10-28] MEDS ORDERED: REGLAN IV ONE (10:44)
[2018-10-28] MEDS ORDERED: NACL 0.9% 1000 ML 1,000 ML IV ONE (10:44)
--- NOTE | 2018-10-28 10:50 | Emergency Department Report ---
ED N/V/D HPI - General Chief complaint: Nausea/Vomiting/Diarrhea Stated complaint: VOMITING Time Seen by Provider: 10/28/18 09:24 Source: patient Mode of arrival: Ambulatory Limitations: No Limitations - History of Present Illness Initial comments: This is a 38-year-old female nontoxic, well nourished in appearance, no acute signs of distress presents to the ED with c/o of nausea and vomiting 3 days. Patient describes vomiting as food content. Patient denies any abdominal pain, chest pain, short of breath, fever, chills, headache, stiff neck, numbness or tingling. Patient denies any diarrhea or constipation. Patient denies any recent travels. Patient denies any drug allergies significant past medical history. MD complaint: nausea, vomiting -: days(s) (3) Associated Abdominal Pain: No Pain Scale: 0 Improves with: none Worsens with: none Associated Symptoms: nausea/vomiting. denies: myalgias, chest pain, cough, diaphoresis, fever/chills, headaches, loss of appetite, malaise, rash, dysuria, shortness of breath, syncope, weakness - Related Data Previous Rx's Medication Instructions Recorded Last Taken Type Ferrous Sulfate [Feosol 325 MG tab] 325 mg PO BID #60 tablet 11/07/17 Unknown Rx Labetalol [Labetalol 200mg TAB] 200 mg PO BID #60 tablet 11/07/17 Unknown Rx Vit Calc,Iron,Folic 1 each PO DAILY #30 tablet 11/07/17 Unknown Rx [ Vitamins] Ibuprofen [Motrin] 800 mg PO Q8HR PRN #30 tablet 05/13/18 Unknown Rx Methylergonovine [Methergine] 0.2 mg PO Q8HR #6 tablet 05/13/18 Unknown Rx metroNIDAZOLE [Flagyl] 500 mg PO Q12HR #14 tab 05/13/18 Unknown Rx Metoclopramide [Reglan] 10 mg PO BID PRN #20 tab 10/28/18 Unknown Rx 21/Iron Fu/Folic Acid 1 each PO DAILY #30 tablet 10/28/18 Unknown Rx [ Complete Caplet] Allergies Allergy/AdvReac Type Severity Reaction Status Date / Time No Known Allergies Allergy Unverified 11/05/17 02:51 ED Review of Systems ROS: Stated complaint: VOMITING Other details as noted in HPI Constitutional: denies: chills, fever Eyes: denies: eye pain, eye discharge, vision change ENT: denies: ear pain, throat pain Respiratory: denies: cough, shortness of breath, wheezing Cardiovascular: denies: chest pain, palpitations Endocrine: no symptoms reported Gastrointestinal: nausea, vomiting. denies: abdominal pain, diarrhea Genitourinary: denies: urgency, dysuria, discharge Musculoskeletal: denies: back pain, joint swelling, arthralgia Skin: denies: rash, lesions Neurological: denies: headache, weakness, paresthesias Psychiatric: denies: anxiety, depression Hematological/Lymphatic: denies: easy bleeding, easy bruising ED Past Medical Hx - Past Medical History Hx Hypertension: Yes Hx Congestive Heart Failure: No Hx Diabetes: No Hx Deep Vein Thrombosis: No Hx Renal Disease: No Hx Sickle Cell Disease: No Hx Seizures: No Hx Asthma: No Hx COPD: No - Social History Smoking Status: Never Smoker Substance Use Type: None - Medications Home Medications: Home Medications Medication Instructions Recorded Confirmed Last Taken Type Ferrous Sulfate [Feosol 325 MG tab] 325 mg PO BID #60 tablet 11/07/17 Unknown Rx Labetalol [Labetalol 200mg TAB] 200 mg PO BID #60 tablet 11/07/17 Unknown Rx Vit Calc,Iron,Folic 1 each PO DAILY #30 tablet 11/07/17 Unknown Rx [ Vitamins] Ibuprofen [Motrin] 800 mg PO Q8HR PRN #30 tablet 05/13/18 Unknown Rx Methylergonovine [Methergine] 0.2 mg PO Q8HR #6 tablet 05/13/18 Unknown Rx metroNIDAZOLE [Flagyl] 500 mg PO Q12HR #14 tab 05/13/18 Unknown Rx Metoclopramide [Reglan] 10 mg PO BID PRN #20 tab 10/28/18 Unknown Rx 21/Iron Fu/Folic Acid 1 each PO DAILY #30 tablet 10/28/18 Unknown Rx [ Complete Caplet] ED Physical Exam - General Limitations: No Limitations General appearance: alert, in no apparent distress - Head Head exam: Present: atraumatic, normocephalic - Neck Neck exam: Present: normal inspection, full ROM. Absent: tenderness, meningismus, lymphadenopathy - Respiratory Respiratory exam: Present: normal lung sounds bilaterally. Absent: respiratory distress, wheezes, rales, rhonchi, stridor, chest wall tenderness, accessory muscle use, decreased breath sounds, prolonged expiratory - Cardiovascular Cardiovascular Exam: Present: regular rate, normal rhythm, normal heart sounds. Absent: bradycardia, tachycardia, irregular rhythm, systolic murmur, diastolic murmur, rubs, gallop - GI/Abdominal GI/Abdominal exam: Present: soft, normal bowel sounds. Absent: distended, tenderness, guarding, rigid, diminished bowel sounds - Extremities Exam Extremities exam: Present: normal inspection, full ROM - Back Exam Back exam: Present: normal inspection, full ROM - Neurological Exam Neurological exam: Present: alert, oriented X3, normal gait - Psychiatric Psychiatric exam: Present: normal affect, normal mood - Skin Skin exam: Present: warm, dry, intact, normal color. Absent: rash ED Course Vital Signs 10/28/18 09:13 Temperature 98.4 F Pulse Rate 85 Respiratory 20 Rate Blood Pressure 158/95 O2 Sat by Pulse 99 Oximetry - Reevaluation(s) Reevaluation #1: 10/28/18 10:50 Patient is speaking in full sentences with no signs of distress noted. ED Medical Decision Making - Lab Data Result diagrams: 10/28/18 10:07 - Medical Decision Making This is a 38-year-old female that presents with nausea vomiting during . Patient is stable and was examined by me. There is no abdominal tenderness. Labs obtained. UA obtained. Vital signs are stable prior to discharge. Patient received Reglan and 1L Normal saline in the ED which patient stated symptoms has resovled and subsided. A by mouth challenge has been obtained and patient tolerated well with no nausea vomiting. Patient was also instructed to Follow-up with a OBGYN doctor in 3-5 days or if symptoms worsen and continue return to emergency room as soon as possible. At time of discharge, the patient does not seem toxic or ill in appearance. No acute signs of distress noted. Patient agrees to discharge treatment plan of care. No further questions noted by the patient. Critical care attestation.: If time is entered above; I have spent that time in minutes in the direct care of this critically ill patient, excluding procedure time. ED Disposition Clinical Impression: Nausea and vomiting during Disposition: DC-01 TO HOME OR SELFCARE Is pt being admited?: No Does the pt Need Aspirin: No Condition: Stable Instructions: (ED), Hyperemesis Gravidarum (ED) Additional Instructions: Follow-up with a OBGYN doctor in 3-5 days or if symptoms worsen and continue return to emergency room as soon as possible. Prescriptions: 21/Iron Fu/Folic Acid [ Complete Caplet] 1 each PO DAILY #30 tablet Metoclopramide [Reglan] 10 mg PO BID PRN #20 tab PRN Reason: Nausea Referrals: LUTHER PERDOMO MD [Primary Care Provider] - 3-5 Days PRIMARY CAREMD [Referring] - 3-5 Days BRIAN MONTANO MD [Staff Physician] - 3-5 Days [facility] [Provider Group] - 3-5 Days Forms: Work/School Release Form(ED)
[2018-10-28 10:54] LABS: Alanine Aminotransferase 20 units/L (7-56); Albumin 4.2 g/dL (3.9-5); BUN/Creatinine Ratio 20; Blood Urea Nitrogen 10 mg/dL (7-17); Calcium 9.3 mg/dL (8.4-10.2); Hemolysis Index 2
== END 2018-10-28 12:06 | disposition home or self-care (01) ==
LOC: ED 09:07
DX: O26.899 Other specified pregnancy related conditions, unspecified trimester (principal); R11.0 Nausea; O21.9 Vomiting of pregnancy, unspecified; O10.919 Unspecified pre-existing hypertension complicating pregnancy, unspecified trimester; Z79.899 Other long term (current) drug therapy; Z3A.00 Weeks of gestation of pregnancy not specified
CPT/HCPCS: 36415; 80053; 81001; 83690; 84703; 85025; 99283; J2765; J7030

== ENCOUNTER 2018-12-11 11:40 | Emergency (ER) | payer SELFPAY ==
[2018-12-11 12:03] VITALS: BP 151/92
--- NOTE | 2018-12-11 12:03 | Event Note ---
ED Screening Note Date of service: 12/11/18 Time: 12:01 ED Screening Note: This is a 38 y.o. F. that presents to the ER with headache and right flank pain. Confirmed last month. No DIRECTOR INFORMATION care. LMP 08/19/2018 PMH migraines Reports blood pressure elevated. This initial assessment/diagnostic orders/clinical plan/treatment(s) is/are subject to change based on patients health status, clinical progression and re- assessment by fellow clinical providers in the ED. Further treatment and workup at subsequent clinical providers discretion. Patient/guardian urged not to elope from the ED as their condition may be serious if not clinically assessed and managed. Initial orders include: Labs and OB US
[2018-12-11 13:29] LABS: Bacteria,Urine 1+ /HPF (Negative); Bilirubin,Urine NEG (Negative); Blood,Urine NEG (Negative); Color,Urine Straw (Yellow); Mucus,Urine FEW /HPF; Protein,Urine <15 mg/dL mg/dL (Negative); Urobilinogen,Urine < 2.0 mg/dL (<2.0)
[2018-12-11 13:36] LABS: Basophils % (Auto) 0.5 % (0.0-1.8); Eosinophils # (Auto) 0.2 K/mm3 (0.0-0.4); Eosinophils % (Auto) 2.9 % (0.0-4.3); Hematocrit 34.9 % (30.3-42.9); Hemoglobin 11.9 gm/dl (10.1-14.3); Lymphocytes # (Auto) 1.7 K/mm3 (1.2-5.4); Lymphocytes % (Auto) 24.2 % (13.4-35.0); Mean Corpuscular HGB Conc 34 % (30-34); Mean Corpuscular Volume 85 fl (79-97); Monocytes # (Auto) 0.4 K/mm3 (0.0-0.8); Monocytes % (Auto) 6.3 % (0.0-7.3); Platelet Count 207 K/mm3 (140-440); Red Blood Count 4.09 M/mm3 (3.65-5.03); Red Cell Distribution Width 14.4 % (13.2-15.2)
[2018-12-11 14:01] LABS: Alanine Aminotransferase 8 units/L (7-56); Albumin 3.8 g/dL (3.9-5); BUN/Creatinine Ratio 20; Blood Urea Nitrogen 12 mg/dL (7-17); Calcium 9.1 mg/dL (8.4-10.2); Hemolysis Index 0
--- NOTE | 2018-12-11 14:28 | Emergency Department Report ---
HPI - General Chief Complaint: Abdominal Pain Time Seen by Provider: 12/11/18 12:01 - HPI HPI: 38-year-old -Mong[place] female presents to the emergency department with a complaint of having some right-sided headache and right-sided flank pain that started earlier today. However, at the time of my examination, the patient's symptoms have completely resolved without any treatment prior to arrival. The patient is currently but she is unsure how far along she is. With this she is with one previous miscarriage and 2 live children. He follows with Dr. Jesus Alberto Powell for [facility]. She is on vitamins. She denies any dysuria, vaginal bleeding or discharge, pelvic pain. ED Past Medical Hx - Past Medical History Hx Hypertension: Yes Hx Congestive Heart Failure: No Hx Diabetes: No Hx Deep Vein Thrombosis: No Hx Renal Disease: No Hx Sickle Cell Disease: No Hx Seizures: No Hx Asthma: No Hx COPD: No - Surgical History Past Surgical History?: No - Social History Smoking Status: Never Smoker Substance Use Type: None - Medications Home Medications: Home Medications Medication Instructions Recorded Confirmed Last Taken Type Ferrous Sulfate [Feosol 325 MG tab] 325 mg PO BID #60 tablet 11/07/17 Unknown Rx Labetalol [Labetalol 200mg TAB] 200 mg PO BID #60 tablet 11/07/17 Unknown Rx Vit Calc,Iron,Folic 1 each PO DAILY #30 tablet 11/07/17 Unknown Rx [ Vitamins] Ibuprofen [Motrin] 800 mg PO Q8HR PRN #30 tablet 05/13/18 Unknown Rx Methylergonovine [Methergine] 0.2 mg PO Q8HR #6 tablet 05/13/18 Unknown Rx metroNIDAZOLE [Flagyl] 500 mg PO Q12HR #14 tab 05/13/18 Unknown Rx Metoclopramide [Reglan] 10 mg PO BID PRN #20 tab 10/28/18 Unknown Rx 21/Iron Fu/Folic Acid 1 each PO DAILY #30 tablet 10/28/18 Unknown Rx [ Complete Caplet] ED Review of Systems ROS: Stated complaint: RT SIDE PAIN/HEADACHE PAIN Other details as noted in HPI Comment: All other systems reviewed and negative Constitutional: denies: chills, fever Respiratory: denies: cough, shortness of breath Cardiovascular: denies: chest pain, palpitations Gastrointestinal: abdominal pain (right flank, now resolved). denies: nausea, vomiting Genitourinary: denies: dysuria, discharge Musculoskeletal: denies: back pain, arthralgia Neurological: headache (now resolved). denies: weakness, numbness Physical Exam - Physical Exam Vital Signs: Vital Signs 12/11/18 12:01 Temperature 98.5 F Pulse Rate 95 H Respiratory 18 Rate Blood Pressure 151/92 [Left] O2 Sat by Pulse 98 Oximetry Physical Exam: GENERAL: The patient is well-developed well-nourished. HENT: Normocephalic. Atraumatic. Patient has moist mucous membranes. EYES: Extraocular motions are intact. Pupils equal reactive to light bilaterally. NECK: Supple. Trachea is midline. CHEST/LUNGS: Clear to auscultation. There is no respiratory distress noted. HEART/CARDIOVASCULAR: Regular. There is no tachycardia. There is no murmur. ABDOMEN: Abdomen is soft, nontender. Patient has normal bowel sounds. There is no abdominal distention. SKIN: Skin is warm and dry. NEURO: The patient is awake, alert, and oriented. The patient is cooperative. The patient has no focal neurologic deficits. Normal speech. Cranial nerves II through XII grossly intact. MUSCULOSKELETAL: There is no tenderness or deformity. There is no evidence of acute injury. ED Course Vital Signs 12/11/18 12:01 Temperature 98.5 F Pulse Rate 95 H Respiratory 18 Rate Blood Pressure 151/92 [Left] O2 Sat by Pulse 98 Oximetry ED Medical Decision Making - Lab Data Result diagrams: 12/11/18 13:26 12/11/18 13:26 - Radiology Data Radiology results: report reviewed OB ULTRASOUND INDICATION: abdominal pain, preganant gest COMPARISON: 05/13/2018 FINDINGS: A single gestation intrauterine is present with cephalic presentation. The placenta is right lateral, grade 0 and 153 free of the cervical os. heart tones measure 153 bpm. The cervix measures 4.6 cm. Qualitative amniotic fluid is within normal limits. anatomical survey was not performed. Biparietal diameter is 3.7 cm which equals 17 weeks 3 days. Head circumference is 13.7 cm which equals 17 weeks 1 day. Abdominal circumference is 11.4 cm which equals 17 weeks 1 day. Femur length is 2.4 cm which equals 17 weeks 1 day. Overall estimated sonographic age is 17 weeks 2 days. HC/AC ratio: 1.2 Cephalic index: 89 Estimated weight 184 g +/- 20 7 g. 93rd percentile. IMPRESSION: Viable single intrauterine as described. No acute abnormality is detected. - Medical Decision Making This patient initially presented with complaint of some right flank pain and a right-sided headache but that has since resolved prior to my examination. She does not appear to be in any acute distress. No focal, motor or sensory deficits and her cranial nerves are intact. She had a ultrasound shows a live intrauterine at about 17 weeks. Labs have been unremarkable CBC, metabolic panel and urinalysis. Patient does have some mild hypertension and does have a history of hypertension in . She has an appointment in 2 days with her [facility] for evaluation of the hypertension. She does not have any lower extremity edema, thrombocytopenia, proteinuria and the headache resolved without any intervention. She will return to the emergency Department with any worsening of her symptoms or any acute distress. - Differential Diagnosis , UTI, preeclampsia Critical Care Time: No Critical care attestation.: If time is entered above; I have spent that time in minutes in the direct care of this critically ill patient, excluding procedure time. ED Disposition Clinical Impression: Flank pain Qualifiers: Weeks of gestation: 17 weeks Qualified Code(s): Z3A.17 - 17 weeks gestation of Headache Qualifiers: Headache type: unspecified Headache chronicity pattern: unspecified pattern Intractability: not intractable Qualified Code(s): R51 - Headache induced hypertension Qualifiers: Trimester: second trimester Qualified Code(s): O13.2 - Gestational [- induced] hypertension without significant proteinuria, second trimester Disposition: DC- TO HOME OR SELFCARE Is pt being admited?: No Condition: Stable Instructions: (ED), Abdominal Pain (ED), Hypertension (ED) Additional Instructions: Please follow-up with your [facility] in the next few days. Continue with your vitamins. Continue with your blood pressure medication. Try to stay away from foods are high in salt and caffeinated products. Return to the emergency department with any return of your headache, development of vaginal bleeding or sharp abdominal/pelvic pains, or if any acute distress. Referrals: JESUS ALBERTO POWELL MD [Staff Physician] - 3-5 Days Forms: Work/School Release Form(ED)
--- NOTE | 2018-12-11 14:28 | Ultrasound Report ---
OB ULTRASOUND INDICATION: abdominal pain, preganant gest COMPARISON: 05/13/2018 FINDINGS: A single gestation intrauterine is present with cephalic presentation. The placenta is righ t lateral, grade 0 and 153 free of the cervical os. heart tones measure 153 bpm. The cervix me asures 4.6 cm. Qualitative amniotic fluid is within normal limits. anatomical survey was not performed. Biparietal diameter is 3.7 cm which equals 17 weeks 3 days. Head circumference is 13.7 cm which equals 17 weeks 1 day. Abdominal circumference is 11.4 cm which equals 17 weeks 1 day. Femur length is 2.4 cm which equals 17 weeks 1 day. Overall estimated sonographic age is 17 weeks 2 days. HC/AC ratio: 1.2 Cephalic index: 89 Estimated weight 184 g +/- 20 7 g. 93rd percentile. IMPRESSION: Viable single intrauterine as described. No acute abnormality is detected. Signer Name: Jesus Alberto Monroe Jr, MD Signed: 12/11/2018 2:24 PM Workstation Name: [id number]
== END 2018-12-11 14:50 | disposition home or self-care (01) ==
LOC: ED 11:40
DX: O26.892 Other specified pregnancy related conditions, second trimester (principal); R51 Headache; R10.9 Unspecified abdominal pain; O13.2 Gestational [pregnancy-induced] hypertension without significant proteinuria, second trimester; Z79.899 Other long term (current) drug therapy; Z3A.17 17 weeks gestation of pregnancy
CPT/HCPCS: 36415; 76801; 80053; 81001; 84702; 85025

== ENCOUNTER 2019-03-13 16:47 | Outpatient (CLI) | payer MEDICAID ==
[2019-03-13 18:46] LABS: Bilirubin,Urine NEG (Negative); Blood,Urine NEG (Negative); Color,Urine Yellow (Yellow); Mucus,Urine FEW /HPF; Protein,Urine <15 mg/dL mg/dL (Negative); Urobilinogen,Urine < 2.0 mg/dL (<2.0)
[2019-03-13 19:01] LABS: Hematocrit 33.6 % (30.3-42.9); Hemoglobin 11.5 gm/dl (10.1-14.3); Mean Corpuscular HGB Conc 34 % (30-34); Mean Corpuscular Volume 90 fl (79-97); Platelet Count 208 K/mm3 (140-440); Red Blood Count 3.75 M/mm3 (3.65-5.03); Red Cell Distribution Width 13.8 % (13.2-15.2)
[2019-03-13 19:02] LABS: Alanine Aminotransferase 11 units/L (7-56)
[2019-03-13 19:58] VITALS: BP 158/85
== END 2019-03-13 20:15 | disposition home or self-care (01) ==
LOC: TRG 16:47
PROVIDERS: ATTEND Obstetrics & Gynecology
DX: O47.03 False labor before 37 completed weeks of gestation, third trimester (principal); Z3A.30 30 weeks gestation of pregnancy
CPT/HCPCS: 36415; 59025; 81001; 82565; 83615; 84450; 84460; 84550; 85027

== ENCOUNTER 2019-04-18 19:52 | Outpatient (CLI) | payer MEDICAID ==
[2019-04-18 22:42] LABS: Hematocrit 33.9 % (30.3-42.9); Hemoglobin 11.5 gm/dl (10.1-14.3); Mean Corpuscular HGB Conc 34 % (30-34); Mean Corpuscular Volume 88 fl (79-97); Platelet Count 173 K/mm3 (140-440); Red Blood Count 3.85 M/mm3 (3.65-5.03); Red Cell Distribution Width 13.4 % (13.2-15.2)
[2019-04-18 22:53] LABS: Alanine Aminotransferase 18 units/L (7-56)
[2019-04-18 23:42] LABS: Bacteria,Urine 1+ /HPF (Negative); Bilirubin,Urine NEG (Negative); Blood,Urine NEG (Negative); Color,Urine Yellow (Yellow); Mucus,Urine FEW /HPF; Protein,Urine <15 mg/dL mg/dL (Negative); Urobilinogen,Urine < 2.0 mg/dL (<2.0)
[2019-04-18 23:52] LABS: Amphetamine Screen,Urine PRESUMPTIVE NEGATIVE; Benzodiazepines Screen,Urine PRESUMPTIVE NEGATIVE; Cannabinoid Screen,Urine PRESUMPTIVE NEGATIVE; Cocaine Screen,Urine PRESUMPTIVE NEGATIVE; Methadone Screen,Urine PRESUMPTIVE NEGATIVE; Opiate Screen,Urine PRESUMPTIVE NEGATIVE
[2019-04-18] MEDS ORDERED: NIFEdipine XL 30 MG TAB PO SCH (23:55)
== END 2019-04-19 00:04 | disposition home or self-care (01) ==
LOC: TRG 19:52
PROVIDERS: ATTEND Obstetrics & Gynecology
DX: O13.3 Gestational [pregnancy-induced] hypertension without significant proteinuria, third trimester (principal); Z3A.35 35 weeks gestation of pregnancy
CPT/HCPCS: 36415; 59025; 80307; 81001; 82565; 83615; 84450; 84460; 84550; 85027

== ENCOUNTER 2020-04-12 10:41 | Observation (INO) | payer MEDICAID ==
[2020-04-12] MEDS ORDERED: LACTATED RINGERS 1,000 ML ONE (12:13)
[2020-04-12 13:24] LABS: Hematocrit 31.5 % (30.3-42.9); Hemoglobin 10.8 gm/dl (10.1-14.3); Mean Corpuscular HGB Conc 34 % (30-34); Mean Corpuscular Volume 87 fl (79-97); Platelet Count 169 K/mm3 (140-440); Red Blood Count 3.61 M/mm3 (3.65-5.03); Red Cell Distribution Width 13.2 % (13.2-15.2)
[2020-04-12 13:37] LABS: Bilirubin,Urine NEG (Negative); Blood,Urine NEG (Negative); Color,Urine Amber (Yellow); Mucus,Urine 3+ /HPF
[2020-04-12] MEDS ORDERED: LACTATED RINGERS 500 ML IV ONE (14:36)
[2020-04-12 15:04] LABS: Alanine Aminotransferase 12 units/L (7-56); Albumin 3.6 g/dL (3.9-5); Blood Urea Nitrogen 8 mg/dL (7-17); Calcium 8.5 mg/dL (8.4-10.2); Hemolysis Index 0
[2020-04-12 15:05] LABS: BUN/Creatinine Ratio 16
[2020-04-12] MEDS ORDERED: ACETAMINOPHEN 325 MG TAB PO PRN (16:59)
[2020-04-12] MEDS ORDERED: LACTATED RINGERS 1,000 ML IV SCH (17:00)
--- NOTE | 2020-04-12 17:25 | History and Physical Report ---
History of Present Illness Date of examination: 04/12/20 Date of admission: 04/12/2020 Chief complaint: Admitted for 23 hour observation due to elevated blood pressures. History of present illness: 40 year old was noted to have elevated blood pressures in triage and was admitted for 23 hour observation for BP monitoring and collection of 24 hour urine for total protein. Patient states she receives care at [facility]; no records are available. Will pass on to oncoming provider tomorrow morning that we need to obtain records when [facility] opens. Patient states she also sees [facility]. LMP unknown. EDC per patient report: 05/07/2020 (based on an ultrasound done in first trimester per patient report). Patient reports the following problems during this : chronic hypertension (on Labetalol 300 mg po BID); herpes positive (supposed to be taking Valtrex for suppression). labs are not available but will request records. Past History Past Medical History: hypertension, other (obesity) Past Surgical History: no surgical history OR SCRUB TECH History: herpes (denies lesions; is supposed to be taking Valtrex for suppression but states she has not started it yet). denies: chlamydia, gonorrhea, hepatitis B, hepatitis C, HIV, syphilis, trichomonas Family/Genetic History: diabetes, hypertension, cancer Social history: lives with family, full code. denies: smoking, alcohol abuse, prescription drug abuse, IV drug use - Obstetrical History Expected Date of Delivery: 05/07/20 Actual Gestation: 36 Week(s) 3 Day(s) : 5 Para: 3 Hx # Term Pregnancies: 3 Number of Pregnancies: 0 Spontaneous Abortions: 1 Induced : 0 Number of Living Children: 3 Medications and Allergies Allergies Allergy/AdvReac Type Severity Reaction Status Date / Time doxycycline Allergy Mild Hives Verified 04/18/19 21:13 Home Medications Medication Instructions Recorded Confirmed Last Taken Type Ferrous Sulfate [Feosol 325 MG tab] 325 mg PO BID #60 tablet 11/07/17 04/29/19 04/29/19 10:00 Rx Vit Calc,Iron,Folic 1 each PO DAILY #30 tablet 11/07/17 04/29/19 04/29/19 10:00 Rx [ Vitamins] NIFEdipine 30 mg PO DAILY 04/29/19 04/29/19 04/29/19 06:00 History labetaloL [Labetalol 200mg TAB] 300 mg PO TID 04/29/19 04/29/19 04/29/19 13:00 History Ferrous Sulfate [Feosol 325 MG tab] 325 mg PO BID #60 tablet 05/02/19 Unknown Rx Ibuprofen [Motrin 600 MG tab] 600 mg PO Q6H #30 tablet 05/02/19 Unknown Rx NIFEdipine XL [Procardia Xl] 30 mg PO QDAY #30 tablet 05/02/19 Unknown Rx Vit-Fe Fumar-FA [ 1 each PO QDAY #30 tablet 05/02/19 Unknown Rx Vitamin] labetaloL [Labetalol 100mg TAB] 300 mg PO Q8HR #90 tablet 05/02/19 Unknown Rx Active Meds: Active Medications Acetaminophen (Acetaminophen 325 Mg Tab) 650 mg PO Q4H PRN PRN Reason: Pain MILD(1-3)/Fever >100.5/MCKEON Lactated Ringer's (Lactated Ringers) 1,000 mls @ 125 mls/hr IV DIRECT JUSTIN Labetalol HCl (Labetalol 100 Mg Tab) 300 mg PO BID JUSTIN Multivitamins/Iron/Calcium ( Yyp28-Qh Fumarate-Folic Acid Vit Tab) 1 each PO QDAY JUSTIN Valacyclovir HCl (Valacyclovir 500 Mg Tab) 500 mg PO BID JUSTIN Review of Systems Ears, nose, mouth and throat: no headache Cardiovascular: no edema, no lightheadedness, no shortness of breath Respiratory: no cough, no shortness of breath Gastrointestinal: no nausea, no vomiting Genitourinary: no genital sores - Vital Signs Vital signs: Vital Signs Pulse BP 97 H 127/81 04/12/20 11:17 04/12/20 11:17 Temp Pulse Resp BP Pulse Ox 81 151/88 99 04/12/20 15:54 04/12/20 15:54 04/12/20 14:19 - Physical Exam Abdomen: Positive: normal appearance, soft. Negative: distention, tenderness, guarding, rigidity Uterus: Positive: enlarged. Negative: tender Extremities: Positive: normal. Negative: tenderness, edema - Obstetrical FHR: category 1 Uterine Contraction Monitor Mode: External Uterine Contraction Pattern: Irregular Uterine Contraction Intensity: Mild Results Result Diagrams: 04/12/20 12:55 04/12/20 Unknown Abnormal lab results 04/12/20 04/12/20 Range/Units 12:55 Unknown RBC 3.61 L (3.65-5.03) M/mm3 Sodium 136 L (137-145) mmol/L Creatinine 0.5 L (0.6-1.2) mg/dL Alkaline Phosphatase 132 H (35-129) units/L Total Protein 5.8 L (6.3-8.2) g/dL Albumin 3.6 L (3.9-5) g/dL All other labs normal. Assessment and Plan A: at 36 weeks, 3 days gestation. Chronic hypertension. Obesity. Elevated blood pressures. HSV 2 positive. P: Admit. EFM. PreE labs. 24 hour urine for total protein. Labetalol 300 mg po BID. [facility] consult. Continue Valtrex for HSV suppression. Consulted with Dr. Antoine re: this patient.
--- NOTE | 2020-04-12 17:31 | Ultrasound Report ---
US OB BPP WO NON-STRESS, US OB LIMITED INDICATION / CLINICAL INFORMATION: well being. COMPARISON: None available. FINDINGS: breathing movement = 2 Gross body movement = 2 tone = 2 Qualitative amniotic fluid volume = 2 Total biophysical score = 8/8 Amniotic fluid index is 10.0 cm., Within normal limits Presentation is Cephalic. heart rate is 152 beats per minute. Measurements are as follows: Biparietal diameter 8.9 cm, 36 weeks 0 days Head circumference 31 cm, 34 weeks 6 days Abdominal circumference 33 cm, 36 weeks 4 days Femur length 6.8 cm, 34 weeks 6 days Estimated birthweight at this time is 6 pounds, 3 ounces. There is a grade 0 posterior placenta IMPRESSION: 1. biophysical profile = 8/8 2. Amniotic fluid index is normal. Signer Name: Trung Li MD Signed: 04/12/2020 5:27 PM Workstation Name: [id number]
[2020-04-12] MEDS: valACYclovir 500 MG TAB PO SCH (22:26)
[2020-04-13] MEDS: valACYclovir 500 MG TAB PO SCH ×2 (09:23→22:12)
[2020-04-13] MEDS: PRENATAL VIT27-FE FUMARATE-FOLIC ACID VIT TAB PO SCH (09:23)
[2020-04-13] MEDS: BETAMET ACET/BETAMET NA PH 6 MG/ML INJ 5 ML MDV IM SCH (12:41)
--- NOTE | 2020-04-13 19:06 | Event Note ---
Date: 04/13/20 S: pt admits to movement, denies headache, LOF, Vag bleed and feeling ctx mild. Pt currently with 24hr prot urine collection in progress. Nurse also states Dr. Plasencia called and ordered betamethasone to be given today and tomorrow. Pt states that she does not have director of early childhood and would like to go home later today O: Vitals with BP 130-170/80-90 and pt currently on labetalol FHR: category I earlier today and then variables noted per nurse report [place]: irreg ctx Abd: soft, non-tender, gravid Pelvic: 1cm unchanged by nurse A/P: preg at 36.3wks with uncontrolled HTN, pt from [facility] and no records 1. Appreciate [facility], pt had received betamethasone #1/2 2. Will check BPP/ANASTASIA 3. Pt told that she will not be discharged and meds will be adjusted upward if BP uncontrolled and delivery if pt with superimposed preeclampsia awaiting completion of 24hr prot 4. Need records from [facility] in the am 5. Emotional support given and all questions encouraged and answered
[2020-04-13 19:12] LABS: Creatinine,Urine 62.7 mg/dL (0.1-20.0)
[2020-04-13 19:18] LABS: Creatinine 24 Hour,Urine 1.7 (0.8-2.8); Creatinine,Urine 64.1 mg/dL (0.1-20.0)
--- NOTE | 2020-04-13 20:00 | Ultrasound Report ---
ULTRASOUND BIOPHYSICAL PROFILE INDICATION: R/o distress - tachycardia. COMPARISON: Ultrasound one day prior FINDINGS: breathing movement = 2 Gross body movement = 2 tone = 2 Qualitative amniotic fluid volume = 2 heart rate is 147 beats per minute. IMPRESSION: biophysical profile = 11/01 Signer Name: Trung Li MD Signed: 04/13/2020 7:55 PM Workstation Name: [id number]
[2020-04-14] MEDS: PRENATAL VIT27-FE FUMARATE-FOLIC ACID VIT TAB PO SCH (09:58)
[2020-04-14] MEDS: valACYclovir 500 MG TAB PO SCH (09:58)
--- NOTE | 2020-04-14 10:16 | Progress Note ---
Subjective - Subjective Date of service: 04/14/20 Principal diagnosis: 39 weeks getation Interval history: See admission H & P and OB progress notes Patient reports: movement normal, contractions ("comfortable with epidural"), no new complaints, no loss of fluid, no vaginal bleeding Objective - Vital Signs Vital Signs: Vital Signs - 12hr 04/13/20 04/13/20 04/13/20 22:13 22:18 22:27 Temperature Pulse Rate 91 H 90 76 Respiratory Rate Blood Pressure Blood Pressure [Left] O2 Sat by Pulse 99 99 99 Oximetry 04/13/20 04/13/20 04/13/20 22:29 22:32 22:37 Temperature Pulse Rate 86 100 H 87 Respiratory Rate Blood Pressure 145/74 Blood Pressure [Left] O2 Sat by Pulse 99 99 Oximetry 04/13/20 04/13/20 04/13/20 22:42 22:47 22:56 Temperature Pulse Rate 85 89 92 H Respiratory Rate Blood Pressure Blood Pressure [Left] O2 Sat by Pulse 99 100 99 Oximetry 04/13/20 04/13/20 04/13/20 23:01 23:06 23:12 Temperature Pulse Rate 84 91 H 98 H Respiratory Rate Blood Pressure Blood Pressure [Left] O2 Sat by Pulse 99 98 99 Oximetry 04/13/20 04/13/20 04/13/20 23:17 23:22 23:27 Temperature Pulse Rate 89 90 79 Respiratory Rate Blood Pressure Blood Pressure [Left] O2 Sat by Pulse 98 99 99 Oximetry 04/13/20 04/13/20 04/13/20 23:28 23:32 23:37 Temperature Pulse Rate 80 85 84 Respiratory Rate Blood Pressure 135/69 Blood Pressure [Left] O2 Sat by Pulse 98 97 Oximetry 04/13/20 04/13/20 04/13/20 23:47 23:52 23:58 Temperature Pulse Rate 101 H 92 H 103 H Respiratory Rate Blood Pressure Blood Pressure [Left] O2 Sat by Pulse 99 99 98 Oximetry 04/14/20 04/14/20 04/14/20 00:00 00:03 00:09 Temperature 98 F Pulse Rate 91 H 99 H Respiratory Rate Blood Pressure Blood Pressure [Left] O2 Sat by Pulse 96 98 Oximetry 04/14/20 04/14/20 04/14/20 00:14 00:19 00:24 Temperature Pulse Rate 94 H 86 84 Respiratory Rate Blood Pressure Blood Pressure [Left] O2 Sat by Pulse 99 98 98 Oximetry 04/14/20 04/14/20 04/14/20 00:29 00:34 00:39 Temperature Pulse Rate 95 H 104 H 97 H Respiratory Rate Blood Pressure 149/73 Blood Pressure [Left] O2 Sat by Pulse 98 98 96 Oximetry 04/14/20 04/14/20 04/14/20 00:44 00:49 00:54 Temperature Pulse Rate 76 78 84 Respiratory Rate Blood Pressure Blood Pressure [Left] O2 Sat by Pulse 97 96 96 Oximetry 04/14/20 04/14/20 04/14/20 00:59 01:02 01:04 Temperature Pulse Rate 83 89 79 Respiratory Rate Blood Pressure Blood Pressure [Left] O2 Sat by Pulse 96 94 96 Oximetry 04/14/20 04/14/20 04/14/20 01:09 01:14 01:16 Temperature Pulse Rate 83 81 91 H Respiratory Rate Blood Pressure Blood Pressure [Left] O2 Sat by Pulse 95 96 94 Oximetry 04/14/20 04/14/20 04/14/20 01:20 01:25 01:27 Temperature Pulse Rate 103 H 84 80 Respiratory Rate Blood Pressure 116/66 Blood Pressure [Left] O2 Sat by Pulse 98 96 Oximetry 04/14/20 04/14/20 04/14/20 01:30 01:35 01:40 Temperature Pulse Rate 105 H 83 79 Respiratory Rate Blood Pressure Blood Pressure [Left] O2 Sat by Pulse 97 98 98 Oximetry 04/14/20 04/14/20 04/14/20 01:45 01:50 01:55 Temperature Pulse Rate 85 81 78 Respiratory Rate Blood Pressure Blood Pressure [Left] O2 Sat by Pulse 98 98 98 Oximetry 04/14/20 04/14/20 04/14/20 02:00 02:05 02:10 Temperature Pulse Rate 83 82 85 Respiratory Rate Blood Pressure Blood Pressure [Left] O2 Sat by Pulse 98 97 96 Oximetry 04/14/20 04/14/20 04/14/20 02:15 02:24 02:27 Temperature Pulse Rate 84 106 H 96 H Respiratory Rate Blood Pressure 130/78 Blood Pressure [Left] O2 Sat by Pulse 96 97 Oximetry 04/14/20 04/14/20 04/14/20 02:29 02:34 02:39 Temperature Pulse Rate 86 86 77 Respiratory Rate Blood Pressure Blood Pressure [Left] O2 Sat by Pulse 97 97 98 Oximetry 04/14/20 04/14/20 04/14/20 02:44 02:49 02:54 Temperature Pulse Rate 93 H 93 H 83 Respiratory Rate Blood Pressure Blood Pressure [Left] O2 Sat by Pulse 97 98 98 Oximetry 04/14/20 04/14/20 04/14/20 02:59 03:04 03:09 Temperature Pulse Rate 87 84 80 Respiratory Rate Blood Pressure Blood Pressure [Left] O2 Sat by Pulse 98 97 97 Oximetry 04/14/20 04/14/20 04/14/20 03:14 03:19 03:24 Temperature Pulse Rate 104 H 83 87 Respiratory Rate Blood Pressure Blood Pressure [Left] O2 Sat by Pulse 97 97 98 Oximetry 04/14/20 04/14/20 04/14/20 03:27 03:29 03:34 Temperature Pulse Rate 82 82 90 Respiratory Rate Blood Pressure 130/66 Blood Pressure [Left] O2 Sat by Pulse 97 97 Oximetry 04/14/20 04/14/20 04/14/20 03:39 03:44 03:49 Temperature Pulse Rate 76 79 81 Respiratory Rate Blood Pressure Blood Pressure [Left] O2 Sat by Pulse 98 98 98 Oximetry 04/14/20 04/14/20 04/14/20 03:54 03:59 04:00 Temperature Pulse Rate 94 H 83 82 Respiratory 16 Rate Blood Pressure Blood Pressure 130/66 [Left] O2 Sat by Pulse 97 99 97 Oximetry 04/14/20 04/14/20 04/14/20 04:04 04:09 04:14 Temperature Pulse Rate 106 H 87 96 H Respiratory Rate Blood Pressure Blood Pressure [Left] O2 Sat by Pulse 98 99 99 Oximetry 04/14/20 04/14/20 04/14/20 04:19 04:24 04:28 Temperature Pulse Rate 83 84 81 Respiratory Rate Blood Pressure 121/70 Blood Pressure [Left] O2 Sat by Pulse 98 99 Oximetry 04/14/20 04/14/20 04/14/20 04:29 04:34 04:39 Temperature Pulse Rate 93 H 83 79 Respiratory Rate Blood Pressure Blood Pressure [Left] O2 Sat by Pulse 96 98 98 Oximetry 04/14/20 04/14/20 04/14/20 04:50 04:55 05:00 Temperature Pulse Rate 110 H 87 76 Respiratory Rate Blood Pressure Blood Pressure [Left] O2 Sat by Pulse 99 98 99 Oximetry 04/14/20 04/14/20 04/14/20 05:05 05:10 05:15 Temperature Pulse Rate 78 78 82 Respiratory Rate Blood Pressure Blood Pressure [Left] O2 Sat by Pulse 99 98 97 Oximetry 04/14/20 04/14/20 04/14/20 05:20 05:25 05:27 Temperature Pulse Rate 72 91 H 75 Respiratory Rate Blood Pressure 128/67 Blood Pressure [Left] O2 Sat by Pulse 98 100 Oximetry 04/14/20 04/14/20 04/14/20 05:30 05:35 05:40 Temperature Pulse Rate 91 H 74 73 Respiratory Rate Blood Pressure Blood Pressure [Left] O2 Sat by Pulse 98 98 98 Oximetry 04/14/20 04/14/20 04/14/20 05:45 05:50 05:55 Temperature Pulse Rate 72 76 73 Respiratory Rate Blood Pressure Blood Pressure [Left] O2 Sat by Pulse 98 98 97 Oximetry 04/14/20 04/14/20 04/14/20 06:00 06:05 06:10 Temperature Pulse Rate 87 77 103 H Respiratory Rate Blood Pressure Blood Pressure [Left] O2 Sat by Pulse 97 98 99 Oximetry 04/14/20 04/14/20 04/14/20 06:19 06:24 06:27 Temperature Pulse Rate 107 H 112 H 82 Respiratory Rate Blood Pressure 134/73 Blood Pressure [Left] O2 Sat by Pulse 97 99 Oximetry 04/14/20 04/14/20 04/14/20 06:29 06:38 06:43 Temperature Pulse Rate 94 H 96 H 89 Respiratory Rate Blood Pressure Blood Pressure [Left] O2 Sat by Pulse 99 100 98 Oximetry 04/14/20 04/14/20 04/14/20 06:50 06:55 07:09 Temperature Pulse Rate 85 93 H 112 H Respiratory Rate Blood Pressure Blood Pressure [Left] O2 Sat by Pulse 96 99 100 Oximetry 04/14/20 04/14/20 04/14/20 07:14 07:19 07:24 Temperature 97.6 F Pulse Rate 91 H 84 95 H Respiratory 14 Rate Blood Pressure 150/76 Blood Pressure 150/76 [Left] O2 Sat by Pulse 99 98 100 Oximetry 04/14/20 04/14/20 04/14/20 07:28 07:29 07:34 Temperature Pulse Rate 77 97 H 85 Respiratory Rate Blood Pressure 124/73 Blood Pressure [Left] O2 Sat by Pulse 98 100 Oximetry 04/14/20 04/14/20 04/14/20 07:39 07:44 07:49 Temperature Pulse Rate 90 81 71 Respiratory Rate Blood Pressure Blood Pressure [Left] O2 Sat by Pulse 100 100 99 Oximetry 04/14/20 04/14/20 04/14/20 07:53 07:54 07:59 Temperature Pulse Rate 75 78 79 Respiratory Rate Blood Pressure Blood Pressure [Left] O2 Sat by Pulse 93 99 97 Oximetry 04/14/20 04/14/20 04/14/20 08:04 08:09 08:14 Temperature Pulse Rate 74 77 77 Respiratory Rate Blood Pressure Blood Pressure [Left] O2 Sat by Pulse 97 99 98 Oximetry 04/14/20 04/14/20 04/14/20 08:19 08:24 08:27 Temperature Pulse Rate 80 78 86 Respiratory Rate Blood Pressure 114/64 Blood Pressure [Left] O2 Sat by Pulse 100 98 Oximetry 04/14/20 04/14/20 04/14/20 08:29 08:34 08:41 Temperature Pulse Rate 107 H 106 H 117 H Respiratory Rate Blood Pressure Blood Pressure [Left] O2 Sat by Pulse 99 99 98 Oximetry 04/14/20 04/14/20 04/14/20 08:46 08:51 08:56 Temperature Pulse Rate 91 H 97 H 94 H Respiratory Rate Blood Pressure Blood Pressure [Left] O2 Sat by Pulse 98 99 99 Oximetry 04/14/20 04/14/20 04/14/20 09:01 09:06 09:11 Temperature Pulse Rate 90 115 H 104 H Respiratory Rate Blood Pressure Blood Pressure [Left] O2 Sat by Pulse 99 98 100 Oximetry 04/14/20 04/14/20 04/14/20 09:16 09:21 09:26 Temperature Pulse Rate 98 H 95 H 95 H Respiratory Rate Blood Pressure Blood Pressure [Left] O2 Sat by Pulse 99 99 100 Oximetry 04/14/20 04/14/20 04/14/20 09:29 09:31 09:36 Temperature Pulse Rate 84 97 H 95 H Respiratory Rate Blood Pressure 144/73 Blood Pressure [Left] O2 Sat by Pulse 99 100 Oximetry 04/14/20 04/14/20 04/14/20 09:41 09:46 09:58 Temperature Pulse Rate 98 H 90 125 H Respiratory Rate Blood Pressure Blood Pressure [Left] O2 Sat by Pulse 99 98 96 Oximetry 04/14/20 04/14/20 10:03 10:08 Temperature Pulse Rate 105 H 102 H Respiratory Rate Blood Pressure Blood Pressure [Left] O2 Sat by Pulse 100 99 Oximetry - Exam Breasts: deferred Cardiovascular: Regular rate Lungs: Normal air movement FHR: category 1 - Labs Labs: Abnormal Labs 04/12/20 04/12/20 04/13/20 12:55 Unknown 17:41 RBC 3.61 L Sodium 136 L Creatinine 0.5 L Alkaline Phosphatase 132 H Total Protein 5.8 L Albumin 3.6 L Urine Creatinine 64.1 H Ur Total Protein 24 Hr 234.00 H 04/13/20 17:41 RBC Sodium Creatinine Alkaline Phosphatase Total Protein Albumin Urine Creatinine 62.7 H Ur Total Protein 24 Hr Laboratory Results - last 24 hr 04/13/20 04/13/20 04/13/20 08:49 17:41 17:41 Urine Total Volume 2600 2600 Urine Creatinine 64.1 H 62.7 H Ur Creatinine 24 Hour 1.7 Height (in) 194.0 Weight (lb) 194.0 Creatinine Clearance 207 Ur Total Protein 24 Hr 234.00 H Urine Total Protein 9 Coronavirus (PCR) Negative
--- NOTE | 2020-04-14 11:14 | Progress Note ---
Assessment and Plan - Patient Problems (1) Hypertension affecting in third trimester Current Visit: Yes Status: Acute Plan to address problem: Patient admitted with known CHTN on labatolol 300mg BID with elevated BPs. BP improved overall, intermittently elevated. PIH labs wnl. Repeat. TP 234g. s/p 1 of 2 BMS, second dose to be completed at 1250 PM --Possible d/c today PM if BPs stay normal --Plan for IOL at 37 weeks at the latest after discussion with Dr Diaz with [facility] if no other indication for delivery --PNC records reviewed (2) Herpes genitalia Current Visit: Yes Status: Acute Plan to address problem: Continue suppression Subjective - Subjective Date of service: 04/14/20 Principal diagnosis: elevated blood pressures, known CHTN Interval history: Patient doing well. Denies PIH symptoms or labor complaints. Understands indication for current admission is BPs. If BPs wnl at ~1pm, will be possible candidate for discharge home with IOL at [address] weeks after discussion with Dr Diaz with [facility]. Objective - Vital Signs Vital Signs: Vital Signs - 12hr 04/13/20 04/13/20 04/13/20 23:12 23:17 23:22 Temperature Pulse Rate 98 H 89 90 Respiratory Rate Blood Pressure Blood Pressure [Left] O2 Sat by Pulse 99 98 99 Oximetry 04/13/20 04/13/20 04/13/20 23:27 23:28 23:32 Temperature Pulse Rate 79 80 85 Respiratory Rate Blood Pressure 135/69 Blood Pressure [Left] O2 Sat by Pulse 99 98 Oximetry 04/13/20 04/13/20 04/13/20 23:37 23:47 23:52 Temperature Pulse Rate 84 101 H 92 H Respiratory Rate Blood Pressure Blood Pressure [Left] O2 Sat by Pulse 97 99 99 Oximetry 04/13/20 04/14/20 04/14/20 23:58 00:00 00:03 Temperature 98 F Pulse Rate 103 H 91 H Respiratory Rate Blood Pressure Blood Pressure [Left] O2 Sat by Pulse 98 96 Oximetry 04/14/20 04/14/20 04/14/20 00:09 00:14 00:19 Temperature Pulse Rate 99 H 94 H 86 Respiratory Rate Blood Pressure Blood Pressure [Left] O2 Sat by Pulse 98 99 98 Oximetry 04/14/20 04/14/20 04/14/20 00:24 00:29 00:34 Temperature Pulse Rate 84 95 H 104 H Respiratory Rate Blood Pressure 149/73 Blood Pressure [Left] O2 Sat by Pulse 98 98 98 Oximetry 04/14/20 04/14/20 04/14/20 00:39 00:44 00:49 Temperature Pulse Rate 97 H 76 78 Respiratory Rate Blood Pressure Blood Pressure [Left] O2 Sat by Pulse 96 97 96 Oximetry 04/14/20 04/14/20 04/14/20 00:54 00:59 01:02 Temperature Pulse Rate 84 83 89 Respiratory Rate Blood Pressure Blood Pressure [Left] O2 Sat by Pulse 96 96 94 Oximetry 04/14/20 04/14/20 04/14/20 01:04 01:09 01:14 Temperature Pulse Rate 79 83 81 Respiratory Rate Blood Pressure Blood Pressure [Left] O2 Sat by Pulse 96 95 96 Oximetry 04/14/20 04/14/20 04/14/20 01:16 01:20 01:25 Temperature Pulse Rate 91 H 103 H 84 Respiratory Rate Blood Pressure Blood Pressure [Left] O2 Sat by Pulse 94 98 96 Oximetry 04/14/20 04/14/20 04/14/20 01:27 01:30 01:35 Temperature Pulse Rate 80 105 H 83 Respiratory Rate Blood Pressure 116/66 Blood Pressure [Left] O2 Sat by Pulse 97 98 Oximetry 04/14/20 04/14/20 04/14/20 01:40 01:45 01:50 Temperature Pulse Rate 79 85 81 Respiratory Rate Blood Pressure Blood Pressure [Left] O2 Sat by Pulse 98 98 98 Oximetry 04/14/20 04/14/20 04/14/20 01:55 02:00 02:05 Temperature Pulse Rate 78 83 82 Respiratory Rate Blood Pressure Blood Pressure [Left] O2 Sat by Pulse 98 98 97 Oximetry 04/14/20 04/14/20 04/14/20 02:10 02:15 02:24 Temperature Pulse Rate 85 84 106 H Respiratory Rate Blood Pressure Blood Pressure [Left] O2 Sat by Pulse 96 96 97 Oximetry 04/14/20 04/14/20 04/14/20 02:27 02:29 02:34 Temperature Pulse Rate 96 H 86 86 Respiratory Rate Blood Pressure 130/78 Blood Pressure [Left] O2 Sat by Pulse 97 97 Oximetry 04/14/20 04/14/20 04/14/20 02:39 02:44 02:49 Temperature Pulse Rate 77 93 H 93 H Respiratory Rate Blood Pressure Blood Pressure [Left] O2 Sat by Pulse 98 97 98 Oximetry 04/14/20 04/14/20 04/14/20 02:54 02:59 03:04 Temperature Pulse Rate 83 87 84 Respiratory Rate Blood Pressure Blood Pressure [Left] O2 Sat by Pulse 98 98 97 Oximetry 04/14/20 04/14/20 04/14/20 03:09 03:14 03:19 Temperature Pulse Rate 80 104 H 83 Respiratory Rate Blood Pressure Blood Pressure [Left] O2 Sat by Pulse 97 97 97 Oximetry 04/14/20 04/14/20 04/14/20 03:24 03:27 03:29 Temperature Pulse Rate 87 82 82 Respiratory Rate Blood Pressure 130/66 Blood Pressure [Left] O2 Sat by Pulse 98 97 Oximetry 04/14/20 04/14/20 04/14/20 03:34 03:39 03:44 Temperature Pulse Rate 90 76 79 Respiratory Rate Blood Pressure Blood Pressure [Left] O2 Sat by Pulse 97 98 98 Oximetry 04/14/20 04/14/20 04/14/20 03:49 03:54 03:59 Temperature Pulse Rate 81 94 H 83 Respiratory Rate Blood Pressure Blood Pressure [Left] O2 Sat by Pulse 98 97 99 Oximetry 04/14/20 04/14/20 04/14/20 04:00 04:04 04:09 Temperature Pulse Rate 82 106 H 87 Respiratory 16 Rate Blood Pressure Blood Pressure 130/66 [Left] O2 Sat by Pulse 97 98 99 Oximetry 04/14/20 04/14/20 04/14/20 04:14 04:19 04:24 Temperature Pulse Rate 96 H 83 84 Respiratory Rate Blood Pressure Blood Pressure [Left] O2 Sat by Pulse 99 98 99 Oximetry 04/14/20 04/14/20 04/14/20 04:28 04:29 04:34 Temperature Pulse Rate 81 93 H 83 Respiratory Rate Blood Pressure 121/70 Blood Pressure [Left] O2 Sat by Pulse 96 98 Oximetry 04/14/20 04/14/20 04/14/20 04:39 04:50 04:55 Temperature Pulse Rate 79 110 H 87 Respiratory Rate Blood Pressure Blood Pressure [Left] O2 Sat by Pulse 98 99 98 Oximetry 04/14/20 04/14/20 04/14/20 05:00 05:05 05:10 Temperature Pulse Rate 76 78 78 Respiratory Rate Blood Pressure Blood Pressure [Left] O2 Sat by Pulse 99 99 98 Oximetry 04/14/20 04/14/20 04/14/20 05:15 05:20 05:25 Temperature Pulse Rate 82 72 91 H Respiratory Rate Blood Pressure Blood Pressure [Left] O2 Sat by Pulse 97 98 100 Oximetry 04/14/20 04/14/20 04/14/20 05:27 05:30 05:35 Temperature Pulse Rate 75 91 H 74 Respiratory Rate Blood Pressure 128/67 Blood Pressure [Left] O2 Sat by Pulse 98 98 Oximetry 04/14/20 04/14/20 04/14/20 05:40 05:45 05:50 Temperature Pulse Rate 73 72 76 Respiratory Rate Blood Pressure Blood Pressure [Left] O2 Sat by Pulse 98 98 98 Oximetry 04/14/20 04/14/20 04/14/20 05:55 06:00 06:05 Temperature Pulse Rate 73 87 77 Respiratory Rate Blood Pressure Blood Pressure [Left] O2 Sat by Pulse 97 97 98 Oximetry 04/14/20 04/14/20 04/14/20 06:10 06:19 06:24 Temperature Pulse Rate 103 H 107 H 112 H Respiratory Rate Blood Pressure Blood Pressure [Left] O2 Sat by Pulse 99 97 99 Oximetry 04/14/20 04/14/20 04/14/20 06:27 06:29 06:38 Temperature Pulse Rate 82 94 H 96 H Respiratory Rate Blood Pressure 134/73 Blood Pressure [Left] O2 Sat by Pulse 99 100 Oximetry 04/14/20 04/14/20 04/14/20 06:43 06:50 06:55 Temperature Pulse Rate 89 85 93 H Respiratory Rate Blood Pressure Blood Pressure [Left] O2 Sat by Pulse 98 96 99 Oximetry 04/14/20 04/14/20 04/14/20 07:09 07:14 07:19 Temperature 97.6 F Pulse Rate 112 H 91 H 84 Respiratory 14 Rate Blood Pressure 150/76 Blood Pressure 150/76 [Left] O2 Sat by Pulse 100 99 98 Oximetry 04/14/20 04/14/20 04/14/20 07:24 07:28 07:29 Temperature Pulse Rate 95 H 77 97 H Respiratory Rate Blood Pressure 124/73 Blood Pressure [Left] O2 Sat by Pulse 100 98 Oximetry 04/14/20 04/14/20 04/14/20 07:34 07:39 07:44 Temperature Pulse Rate 85 90 81 Respiratory Rate Blood Pressure Blood Pressure [Left] O2 Sat by Pulse 100 100 100 Oximetry 04/14/20 04/14/20 04/14/20 07:49 07:53 07:54 Temperature Pulse Rate 71 75 78 Respiratory Rate Blood Pressure Blood Pressure [Left] O2 Sat by Pulse 99 93 99 Oximetry 04/14/20 04/14/20 04/14/20 07:59 08:04 08:09 Temperature Pulse Rate 79 74 77 Respiratory Rate Blood Pressure Blood Pressure [Left] O2 Sat by Pulse 97 97 99 Oximetry 04/14/20 04/14/20 04/14/20 08:14 08:19 08:24 Temperature Pulse Rate 77 80 78 Respiratory Rate Blood Pressure Blood Pressure [Left] O2 Sat by Pulse 98 100 98 Oximetry 04/14/20 04/14/20 04/14/20 08:27 08:29 08:34 Temperature Pulse Rate 86 107 H 106 H Respiratory Rate Blood Pressure 114/64 Blood Pressure [Left] O2 Sat by Pulse 99 99 Oximetry 04/14/20 04/14/20 04/14/20 08:41 08:46 08:51 Temperature Pulse Rate 117 H 91 H 97 H Respiratory Rate Blood Pressure Blood Pressure [Left] O2 Sat by Pulse 98 98 99 Oximetry 04/14/20 04/14/20 04/14/20 08:56 09:01 09:06 Temperature Pulse Rate 94 H 90 115 H Respiratory Rate Blood Pressure Blood Pressure [Left] O2 Sat by Pulse 99 99 98 Oximetry 04/14/20 04/14/20 04/14/20 09:11 09:16 09:21 Temperature Pulse Rate 104 H 98 H 95 H Respiratory Rate Blood Pressure Blood Pressure [Left] O2 Sat by Pulse 100 99 99 Oximetry 04/14/20 04/14/20 04/14/20 09:26 09:29 09:31 Temperature Pulse Rate 95 H 84 97 H Respiratory Rate Blood Pressure 144/73 Blood Pressure [Left] O2 Sat by Pulse 100 99 Oximetry 04/14/20 04/14/20 04/14/20 09:36 09:41 09:46 Temperature Pulse Rate 95 H 98 H 90 Respiratory Rate Blood Pressure Blood Pressure [Left] O2 Sat by Pulse 100 99 98 Oximetry 04/14/20 04/14/20 04/14/20 09:58 10:03 10:08 Temperature Pulse Rate 125 H 105 H 102 H Respiratory Rate Blood Pressure Blood Pressure [Left] O2 Sat by Pulse 96 100 99 Oximetry 04/14/20 04/14/20 04/14/20 10:13 10:18 10:23 Temperature Pulse Rate 96 H 96 H 105 H Respiratory Rate Blood Pressure Blood Pressure [Left] O2 Sat by Pulse 99 99 99 Oximetry 04/14/20 04/14/20 04/14/20 10:28 10:33 10:38 Temperature Pulse Rate 89 111 H 101 H Respiratory Rate Blood Pressure 175/96 Blood Pressure [Left] O2 Sat by Pulse 97 99 99 Oximetry 04/14/20 04/14/20 04/14/20 10:44 10:49 10:54 Temperature Pulse Rate 117 H 103 H 90 Respiratory Rate Blood Pressure Blood Pressure [Left] O2 Sat by Pulse 100 99 99 Oximetry 04/14/20 04/14/20 04/14/20 11:00 11:01 11:05 Temperature Pulse Rate 115 H 117 H 103 H Respiratory Rate Blood Pressure Blood Pressure [Left] O2 Sat by Pulse 95 92 99 Oximetry - Exam Cardiovascular: Regular rate Lungs: Clear to auscultation Abdomen: Present: normal appearance, normal bowel sounds FHR: category 1 Cervical Dilatation: 1 Uterine Contraction Pattern: Absent - Labs Labs: Abnormal Labs 04/12/20 04/12/20 04/13/20 12:55 Unknown 17:41 RBC 3.61 L Sodium 136 L Creatinine 0.5 L Alkaline Phosphatase 132 H Total Protein 5.8 L Albumin 3.6 L Urine Creatinine 64.1 H Ur Total Protein 24 Hr 234.00 H 04/13/20 17:41 RBC Sodium Creatinine Alkaline Phosphatase Total Protein Albumin Urine Creatinine 62.7 H Ur Total Protein 24 Hr Laboratory Results - last 24 hr 04/13/20 04/13/20 04/13/20 08:49 17:41 17:41 Urine Total Volume 2600 2600 Urine Creatinine 64.1 H 62.7 H Ur Creatinine 24 Hour 1.7 Height (in) 194.0 Weight (lb) 194.0 Creatinine Clearance 207 Ur Total Protein 24 Hr 234.00 H Urine Total Protein 9 Coronavirus (PCR) Negative
[2020-04-14 12:28] VITALS: BP 134/77
[2020-04-14] MEDS: BETAMET ACET/BETAMET NA PH 6 MG/ML INJ 5 ML MDV IM SCH (12:33)
--- NOTE | 2020-04-14 13:13 | Discharge Summary ---
Providers - Providers Date of Admission: 04/12/20 17:00 Date of discharge: 04/14/20 Attending physician: JASON MCKENNA 04/12/20 16:59 Consult to Physician [CONS] Routine Comment: Consulting Provider: LAWRENCE GALLEGOS Physician Instructions: Reason For Exam: Late ; chronic hypertension; PIH Primary care physician: JASON MCKENNA Hospitalization Reason for admission: other (r/o PTL, elevated blood pressures, known CHTN) Hospital course: 40 year old discharged at 36w5d c/b CHTN (on labetolol 300mg BID), AMA, HSV (on suppression) was noted to have elevated blood pressures in triage and was admitted for observation for BPs monitoring. Repeat TP 234. PIH labs wnl. BPP 8/8 x 2. Patient continued on labetolol 300mg BID. Plan for IOL 04/16/20 for CHTN at term at 37 weeks. Patient discharged home in good condition. Plan discussed with Dr Esau Diaz with [facility] on day of discharge. PNC reviewed. Condition at discharge: Stable Disposition: DC-01 TO HOME OR SELFCARE - Discharge Diagnoses (1) Hypertension affecting in third trimester Status: Acute (2) Herpes genitalia Status: Acute Plan - Provider Discharge Summary Activity: routine Diet: routine Instructions: routine Additional instructions: [] Smoking cessation referral if applicable(refer to patient education folder for contact #) [] Refer to [facility] Booklet Call your doctor immediately for: * Fever > 100.5 * Heavy vaginal bleeding ( >1 pad per hour) * Severe persistent headache * Shortness of breath * Reddened, hot, painful area to leg or breast * Drainage or odor from incision. * Keep incision clean and dry at all times and follow doctor's instructions regarding bathing/showering - Follow up plan Follow up: JASON MCKENNA MD [Primary Care Provider] - 7 Days
== END 2020-04-14 13:03 | disposition home or self-care (01) ==
LOC: TRG 10:41 → APU 10:43 → TRG 16:59 → LD 17:00
PROVIDERS: ADMIT Obstetrics & Gynecology; ATTEND Obstetrics & Gynecology
DX: O10.913 Unspecified pre-existing hypertension complicating pregnancy, third trimester (principal); Z20.828 Contact with and (suspected) exposure to other viral communicable diseases; O99.213 Obesity complicating pregnancy, third trimester; O98.313 Other infections with a predominantly sexual mode of transmission complicating pregnancy, third trimester; A60.09 Herpesviral infection of other urogenital tract; Z3A.36 36 weeks gestation of pregnancy
CPT/HCPCS: 36415; 76816; 76819; 80053; 81001; 82565; 82570; 82575; 84156; 85027; 86850; 86900; 86901; 96372; G0378; J0702; J7120; U0003; 76815

== ENCOUNTER 2020-04-16 20:20 | Inpatient (IN) | payer MEDICAID ==
[2020-04-16 22:06] LABS: Hematocrit 28.8 % (30.3-42.9); Hemoglobin 9.8 gm/dl (10.1-14.3); Mean Corpuscular HGB Conc 34 % (30-34); Mean Corpuscular Volume 89 fl (79-97); Platelet Count 195 K/mm3 (140-440); Red Blood Count 3.23 M/mm3 (3.65-5.03); Red Cell Distribution Width 12.8 % (13.2-15.2)
[2020-04-16] MEDS ORDERED: fentaNYL 100 MCG/2 ML INJ IV PRN (22:27)
[2020-04-16] MEDS ORDERED: MINERAL OIL 30 ML ORAL LIQD PO PRN (22:27)
[2020-04-16] MEDS ORDERED: LIDOCAINE (2%) 20 MG/1 ML VIAL 20 ML MDV INFILTRATI ONE (22:27)
[2020-04-16] MEDS ORDERED: AMPICILLIN/NS 2 GM/100 ML 2 GM/100 ML BAG IV ONE (22:27)
[2020-04-16] MEDS ORDERED: ePHEDrine SULFATE 50 MG/1 ML INJ IV PRN (22:27)
[2020-04-16] MEDS ORDERED: TERBUTALINE 1 MG/1 ML INJ SUB-Q PRN (22:27)
[2020-04-16] MEDS ORDERED: BUTORPHANOL 2 MG/1 ML INJ IV PRN ×2 (22:27)
[2020-04-16] MEDS: LACTATED RINGERS 1,000 ML IV SCH (22:52)
[2020-04-16] MEDS ORDERED: OXYTOCIN DRIP 30 UNITS/500 ML BAG IV SCH ×2 (23:00)
--- NOTE | 2020-04-16 23:36 | History and Physical Report ---
History of Present Illness Date of examination: 04/16/20 Date of admission: 04/16/20 20:20 Chief complaint: "I was sent here by my doctor to be induced." History of present illness: 40 y/o AA female presented to [facility] L&D @ 37 wks for an IOL r/t NICTN. She admitted to active and denies LOF or VB. Pt initiated her pnc @ [facility] [place] location in her 1st trimester per pt. She was co-managed by [facility] r/t AMA and CHTN. Pt took 81mg of Aspirin, Labetalol, and started Valtrex at 36 wks gestation. She has a hx of chronic HTN with preeclampsia, and HSV II. Pt's GBS is unknown. She was admitted to L&D for an IOL. Labs: A pos AB screen neg Rubella reactive RPR NR HIV NR Hgb 10.7 1 HR gtt 99 GBS unknown Past History Past Medical History: hypertension, other (preeclampsia,AMA,) Past Surgical History: no surgical history [facility] History: herpes Family/Genetic History: cancer Social history: single - Obstetrical History Expected Date of Delivery: 05/07/20 Actual Gestation: 37 Week(s) 1 Day(s) : 4 Para: 3 Hx # Term Pregnancies: 3 Number of Pregnancies: 0 Spontaneous Abortions: 0 Induced : 0 Number of Living Children: 3 Medications and Allergies Allergies Allergy/AdvReac Type Severity Reaction Status Date / Time doxycycline Allergy Mild Hives Verified 04/18/19 21:13 Home Medications Medication Instructions Recorded Confirmed Last Taken Type Ferrous Sulfate [Feosol 325 MG tab] 325 mg PO BID #60 tablet 11/07/17 04/12/20 04/29/19 10:00 Rx Vit Calc,Iron,Folic 1 each PO DAILY #30 tablet 11/07/17 04/12/20 04/11/20 Rx [ Vitamins] NIFEdipine 30 mg PO DAILY 04/29/19 04/12/20 04/29/19 06:00 History labetaloL [Labetalol 200mg TAB] 300 mg PO TID 04/29/19 04/12/20 04/12/20 History Ferrous Sulfate [Feosol 325 MG tab] 325 mg PO BID #60 tablet 05/02/19 04/12/20 Unknown Rx Ibuprofen [Motrin 600 MG tab] 600 mg PO Q6H #30 tablet 05/02/19 04/12/20 Unknown Rx NIFEdipine XL [Procardia Xl] 30 mg PO QDAY #30 tablet 05/02/19 04/12/20 Unknown Rx Vit-Fe Fumar-FA [ 1 each PO QDAY #30 tablet 05/02/19 04/12/20 04/11/20 Rx Vitamin] labetaloL [Labetalol 100mg TAB] 300 mg PO Q8HR #90 tablet 05/02/19 04/12/20 Rx Active Meds: Active Medications Butorphanol Tartrate (Butorphanol 2 Mg/1 Ml Inj) 1 mg IV Q2H PRN PRN Reason: Pain, Moderate(4-6) LABOR PAIN Butorphanol Tartrate (Butorphanol 2 Mg/1 Ml Inj) 2 mg IV Q2H PRN PRN Reason: Pain , Severe (7-10) Ephedrine Sulfate (Ephedrine Sulfate 50 Mg/1 Ml Inj) 10 mg IV Q2M PRN PRN Reason: Hypotension Fentanyl (Fentanyl 100 Mcg/2 Ml Inj) 100 mcg IV Q2H PRN PRN Reason: Pain,Severe (7-10) LABOR PAIN Ferrous Sulfate (Ferrous Sulfate 325 Mg Tab) 325 mg PO BID JUSTIN Oxytocin/Sodium Chloride (Pitocin/Ns 30 Unit/500ml) 30 units in 500 mls @ 2 mls/hr IV TITR JUSTIN; Protocol Lactated Ringer's (Lactated Ringers) 1,000 mls @ 125 mls/hr IV DIRECT JUSTIN Last Admin: 04/16/20 22:52 Dose: 125 mls/hr Documented by: Oxytocin/Sodium Chloride (Pitocin/Ns 30 Unit/500ml) 30 units in 500 mls @ 40 mls/hr IV TITR JUSTIN; Protocol Ampicillin Sodium (Ampicillin/Ns 2 Gm/100 Ml) 2 gm in 100 mls @ 100 mls/hr IV ONCE ONE; Protocol Stop: 04/16/20 23:26 Last Admin: 04/16/20 22:53 Dose: 100 mls/hr Documented by: Ampicillin Sodium (Ampicillin/Ns 1 Gm/50 Ml) 1 gm in 50 mls @ 100 mls/hr IV Q4H JUSTIN; Protocol Labetalol HCl (Labetalol 100 Mg Tab) 100 mg PO BID JUSTIN Last Admin: 04/16/20 23:00 Dose: 100 mg Documented by: Labetalol HCl (Labetalol 200 Mg Tab) 200 mg PO BID JUSTIN Last Admin: 04/16/20 23:00 Dose: 200 mg Documented by: Mineral Oil (Mineral Oil 30 Ml Oral Liqd) 30 ml PO QHS PRN PRN Reason: Constipation Multivitamins/Iron/Calcium ( [id number]-Fm Fumarate-Folic Acid Vit Tab) 1 each PO DAILY [facility] Terbutaline Sulfate (Terbutaline 1 Mg/1 Ml Inj) 0.25 mg SUB-Q ONCE PRN PRN Reason: Hyperstimulation/Hypertonicity Review of Systems All systems: negative Eyes: deferred Ears, nose, mouth and throat: deferred Breasts: normal Genitourinary: normal appearance Rectal Exam: deferred - Vital Signs Vital signs: Vital Signs Pulse BP 73 158/76 04/16/20 21:14 04/16/20 21:14 Temp Pulse Resp BP Pulse Ox 98.8 F 70 18 183/84 04/16/20 21:22 04/16/20 23:04 04/16/20 21:22 04/16/20 23:04 - Physical Exam Breasts: Positive: normal Abdomen: Positive: normal appearance, soft, normal bowel sounds, other (GRAVID) Genitourinary (Female): Positive: normal external genitalia, normal perenium Vulva: both: normal Vagina: Positive: normal moisture Uterus: Positive: enlarged, normal contour, other (GRAVID) Adnexa: both: normal Anus/Rectum: Positive: normal perianal skin Extremities: Positive: normal - Obstetrical FHR: auscultation normal, category 1 Uterine Contraction Monitor Mode: External Cervical Dilatation: 4 Cervical Effacement Percentage: 50 station: -2 Uterine Contraction Frequency (min): IRREG Uterine Contraction Pattern: Irregular Uterine Tone Measurement Phase: Resting Uterine Contraction Intensity: Mild Results Result Diagrams: 04/16/20 21:54 Abnormal lab results 04/16/20 Range/Units 21:54 RBC 3.23 L (3.65-5.03) M/mm3 Hgb 9.8 L (10.1-14.3) gm/dl Hct 28.8 L (30.3-42.9) % RDW 12.8 L (13.2-15.2) % All other labs normal. Assessment and Plan A: IUP@ 37 wks CHTN, HSV II GBS unknown P: Admit to L&D for an IOL Continuous monitoring GBS prophylaxis Anticipate - Patient Problems (1) 37 or more weeks gestation of Current Visit: Yes Status: Acute (2) Hypertension affecting in third trimester Current Visit: No Status: Acute (3) GBS screening not performed Current Visit: Yes Status: Acute (4) AMA (advanced maternal age) multigravida 35+ Current Visit: Yes Status: Acute (5) Herpes genitalia Current Visit: No Status: Acute
[2020-04-17 00:15] LABS: Hematocrit 27.4 % (30.3-42.9); Hemoglobin 9.5 gm/dl (10.1-14.3)
[2020-04-17 00:52] LABS: Alanine Aminotransferase 29 units/L (7-56); Albumin 3.5 g/dL (3.9-5); Blood Urea Nitrogen 10 mg/dL (7-17); Calcium 8.7 mg/dL (8.4-10.2); Hemolysis Index 1; Uric Acid 4.2 mg/dL (3.5-7.6)
[2020-04-17 00:53] LABS: BUN/Creatinine Ratio 20
[2020-04-17] MEDS: AMPICILLIN/NS 1 GM/50 ML 1 GM/50 ML BAG IV SCH ×4 (02:54→13:43)
[2020-04-17] MEDS: LACTATED RINGERS 1,000 ML IV SCH ×2 (04:45→12:48)
[2020-04-17] MEDS ORDERED: FERROUS SULFATE 325 MG TAB PO SCH (10:00)
[2020-04-17] MEDS ORDERED: PRENATAL VIT27-FE FUMARATE-FOLIC ACID VIT TAB PO SCH (10:00)
[2020-04-17] MEDS ORDERED: NIFEdipine XL 30 MG TAB PO SCH ×2 (10:00→13:00)
--- NOTE | 2020-04-17 10:42 | Progress Note ---
Assessment and Plan - Patient Problems (1) Hypertension affecting in third trimester Current Visit: No Status: Acute Plan to address problem: Continue Labetalol 300 mg po BID Continue to monitor B/Ps AROM @ 1013, clear fluids Continue Pitocin titration as tolerated Epidural as desired Notify provider if B/P elevated >160/100 after epidural placement Anticipate (2) GBS screening not performed Current Visit: Yes Status: Acute Plan to address problem: Continue GBS protocol (3) Herpes genitalia Current Visit: No Status: Acute Plan to address problem: No active lesions noted (4) AMA (advanced maternal age) multigravida 35+ Current Visit: Yes Status: Acute Subjective - Subjective Date of service: 04/17/20 Principal diagnosis: IOL secondary to PIH Interval history: See admission H & P Patient reports: movement normal, contractions, no new complaints, no loss of fluid, no vaginal bleeding Objective - Vital Signs Vital Signs: Vital Signs - 12hr 04/16/20 04/16/20 04/16/20 22:46 23:00 23:04 Temperature Pulse Rate 67 67 70 Respiratory Rate Blood Pressure 163/77 163/77 183/84 Blood Pressure [Left] O2 Sat by Pulse Oximetry 04/16/20 04/16/20 04/17/20 23:27 23:50 00:17 Temperature Pulse Rate 71 75 75 Respiratory Rate Blood Pressure 150/72 150/71 155/74 Blood Pressure [Left] O2 Sat by Pulse Oximetry 04/17/20 04/17/20 04/17/20 00:47 00:52 01:16 Temperature Pulse Rate 65 77 72 Respiratory Rate Blood Pressure 182/81 155/79 160/78 Blood Pressure [Left] O2 Sat by Pulse Oximetry 04/17/20 04/17/20 04/17/20 01:46 01:52 02:16 Temperature 98.4 F Pulse Rate 83 71 Respiratory 16 Rate Blood Pressure 143/73 130/73 Blood Pressure [Left] O2 Sat by Pulse Oximetry 04/17/20 04/17/20 04/17/20 02:48 03:16 04:46 Temperature Pulse Rate 68 62 68 Respiratory Rate Blood Pressure 135/79 154/77 149/74 Blood Pressure [Left] O2 Sat by Pulse Oximetry 04/17/20 04/17/20 04/17/20 05:16 05:17 05:55 Temperature 98.9 F Pulse Rate 68 62 Respiratory 17 Rate Blood Pressure 176/84 165/83 Blood Pressure [Left] O2 Sat by Pulse Oximetry 04/17/20 04/17/20 04/17/20 05:57 06:16 06:46 Temperature Pulse Rate 65 93 H 60 Respiratory Rate Blood Pressure 154/76 132/82 160/77 Blood Pressure [Left] O2 Sat by Pulse Oximetry 04/17/20 04/17/20 04/17/20 06:49 07:16 07:51 Temperature 98.8 F Pulse Rate 60 61 74 Respiratory 14 Rate Blood Pressure 154/74 150/77 157/76 Blood Pressure 150/70 [Left] O2 Sat by Pulse 100 Oximetry 04/17/20 04/17/20 04/17/20 08:16 08:46 09:00 Temperature 98.2 F Pulse Rate 78 73 Respiratory 16 Rate Blood Pressure 143/71 166/79 Blood Pressure [Left] O2 Sat by Pulse Oximetry 04/17/20 04/17/20 04/17/20 09:03 09:16 09:26 Temperature Pulse Rate 66 74 74 Respiratory Rate Blood Pressure 182/83 155/75 155/75 Blood Pressure [Left] O2 Sat by Pulse Oximetry 04/17/20 09:47 Temperature Pulse Rate 67 Respiratory Rate Blood Pressure 189/86 Blood Pressure [Left] O2 Sat by Pulse Oximetry - Exam Breasts: deferred Cardiovascular: Regular rate Lungs: Normal air movement Uterus: Present: other (enlarged, S=D) FHR: category 1 Uterine Contraction Monitor Mode: External Cervical Dilatation: 4.5 (vertex) Cervical Effacement Percentage: 60 (Pitocin @ 16mu/min) station: -2 Uterine Contraction Frequency (min): 2-4 Uterine Contraction Pattern: Irregular Uterine Tone Measurement Phase: Resting Uterine Contraction Intensity: Moderate Extremities: normal - Labs Labs: Abnormal Labs 04/16/20 04/16/20 04/16/20 21:54 23:02 Unknown RBC 3.23 L Hgb 9.8 L 9.5 L Hct 28.8 L 27.4 L RDW 12.8 L Sodium 134 L Creatinine 0.5 L Alkaline Phosphatase 136 H Total Protein 6.0 L Albumin 3.5 L Laboratory Results - last 24 hr 04/16/20 04/16/20 04/16/20 21:54 21:54 21:54 WBC 9.2 RBC 3.23 L Hgb 9.8 L Hct 28.8 L MCV 89 MCH 30 MCHC 34 RDW 12.8 L Plt Count 195 Sodium Potassium Chloride Carbon Dioxide Anion Gap BUN Creatinine Estimated GFR BUN/Creatinine Ratio Glucose Uric Acid Calcium Total Bilirubin AST ALT Alkaline Phosphatase Total Protein Albumin Albumin/Globulin Ratio Syphilis IgG Antibody Nonreactive Blood Type A POSITIVE Antibody Screen Negative 04/16/20 04/16/20 23:02 Unknown WBC RBC Hgb 9.5 L Hct 27.4 L MCV MCH MCHC RDW Plt Count Sodium 134 L Potassium 3.6 Chloride 99.1 Carbon Dioxide 29 Anion Gap 10 BUN 10 Creatinine 0.5 L Estimated GFR > 60 BUN/Creatinine Ratio 20 Glucose 98 Uric Acid 4.2 Calcium 8.7 Total Bilirubin 0.30 AST 29 ALT 29 Alkaline Phosphatase 136 H Total Protein 6.0 L Albumin 3.5 L Albumin/Globulin Ratio 1.4 Syphilis IgG Antibody Blood Type Antibody Screen
--- NOTE | 2020-04-17 11:34 | Anesthesia Consultation ---
Anesthesia Consult and Med Hx Date of service: 04/17/20 - Airway Anesthetic Teeth Evaluation: Poor ROM Head & Neck: Adequate Mental/Hyoid Distance: Adequate Mallampati Class: Class II Intubation Access Assessment: Probably Good - Pulmonary Exam CTA: Yes - Cardiac Exam Cardiac Exam: RRR - Pre-Operative Health Status ASA Pre-Surgery Classification: ASA3 Proposed Anesthetic Plan: Epidural - Pulmonary Hx Smoking: No Hx Asthma: No Hx Respiratory Symptoms: No SOB: No COPD: No Home Oxygen Therapy: No Hx Pneumonia: No Hx Sleep Apnea: No - Cardiovascular System Hx Hypertension: Yes (take labetalol 300mg bid) Hx Coronary Artery Disease: No Hx Heart Attack/AMI: No Hx Angina: No Hx Percutaneous Transluminal Coronary Angioplasty (PTCA): No Hx Cardia Arrhythmia: No Hx Pacemaker: No Hx Internal Defibrillator: No Hx Valvular Heart Disease: No - Central Nervous System Hx Neuromuscular Disorder: No Hx Seizures: No CVA: No Hx Back Pain: Yes Hx Psychiatric Problems: No - Gastrointestinal Hx Ulcer: No Hx Gastroesophageal Reflux Disease: Yes - Endocrine Hx Renal Disease: No Hx End Stage Renal Disease: No Hx Cirrhosis: No Hx Liver Disease: No Hx Insulin Dependent Diabetes: No Hx Non-Insulin Dependent Diabetes: No Hx Thyroid Disease: No Hx Hypothyroidism: No Hx Hyperthyroidism: No - Hematic Hx Anemia: Yes Hx Sickle Cell Disease: No - Other Systems Hx Alcohol Use: No Hx Substance Use: No Hx Cancer: No Hx Obesity: Yes
[2020-04-17] MEDS ORDERED: ePHEDrine SULFATE 50 MG/1 ML INJ IV PRN (11:35)
[2020-04-17] MEDS ORDERED: NALOXONE 2 MG/2 ML INJ IV PRN (11:35)
--- NOTE | 2020-04-17 11:35 | Progress Note ---
Labor Epidural - Labor Epidural Start Time: 10:55 Stop Time: 11:10 Performed by:: FIORELLA TINSLEY Procedure: Patient is requesting a laboring epidural for laboring pain. Patient IDed, H&P reviewed, all questions and concerns were answered, and consent was signed. Timeout was performed at bedside. Patient in sitting position. Sterile prep and drape was performed. [3] ml of 1% lidocaine skin wheal at L[3]- L [4]. 18- gauge Tuohy epidural needle was advanced to loss of resistance with air technique 8cm. Negative CSF negative blood. Epidural catheter advanced to [12] centimeters. [NEGATIVE] Aspiration [NEGATIVE] test dose. Sterile dressing applied. Patient tolerated procedure.
[2020-04-17] MEDS ORDERED: fentaNYL-BUPIV 2 MCG/ML-0.125% 200 MCG/100 ML BAG EPIDURAL SCH (12:00)
[2020-04-17 14:19] LABS: Bacteria,Urine 1+ /HPF (Negative); Bilirubin,Urine NEG (Negative); Blood,Urine NEG (Negative); Color,Urine Colorless (Yellow); Protein,Urine <15 mg/dL mg/dL (Negative); Urobilinogen,Urine < 2.0 mg/dL (<2.0)
[2020-04-17] MEDS ORDERED: OXYTOCIN 10 UNIT/1 ML INJ ONE (15:15)
[2020-04-17] MEDS ORDERED: diphenhydrAMINE 25 MG CAP PO PRN (15:24)
[2020-04-17] MEDS ORDERED: LANOLIN/ZINC/DIMETHICONE (LANSINOH) 7 GM TP PRN (15:24)
[2020-04-17] MEDS ORDERED: WITCH HAZEL/ GLYCERIN PAD TP PRN (15:24)
[2020-04-17] MEDS ORDERED: MAGNESIUM HYDROXIDE (MOM) ORAL LIQD UDC PO PRN (15:24)
[2020-04-17] MEDS ORDERED: PROMETHAZINE 25 MG TAB PO PRN (15:24)
[2020-04-17] MEDS ORDERED: ONDANSETRON 4 MG/2 ML INJ IV PRN (15:24)
[2020-04-17] MEDS ORDERED: oxyCODONE /ACETAMINOPHEN 5-325MG TAB PO PRN (15:26)
--- NOTE | 2020-04-17 15:31 | Procedure Note ---
OB Delivery Note - Delivery Date of Delivery: 04/17/20 Surgeon: RUDY HUITRON (KEVIN) Estimated blood loss: 300cc - Vaginal Delivery presentation: vertex Delivery position: OA (JODI) Delivery induction: oxytocin Delivery augmentation: rupture of membranes (AROM @ 1013, clear fluids) Delivery monitor: external FHT, external uterine Route of delivery: Delivery placenta: spontaneous ([id number], howard) Delivery cord: 3 umbilical vessels Episiotomy: none Delivery laceration: none Anesthesia: epidural Delivery comments: if viable, crying female infant placed directly to maternal abdomen. Cord double clamped and cut by myself. Placenta spontaneously delivered, disposed per hospital policy. Uterus firm @ U-2, hemostasis maintained. Perineum in tact. Mother and baby safe, stable and left in care of RN. - A at 1 minute: 8 at 5 minutes: 9 Gender: Female (Weight: 2892 gms (6lbs 6ozs) 18.5 inches)
[2020-04-17] MEDS ORDERED: OXYTOCIN 10 UNIT/1 ML INJ IM ONE (16:00)
--- NOTE | 2020-04-17 17:40 | Post Anesthesia Evaluation ---
- Post Anesthesia Evaluation Patient Participated: Yes Airway Patent: Yes Stable Respiratory Function: Yes Nausea/Vomiting: No Temp > 96.8F: Yes Pain Manageable: Yes Adequeate Hydration: Yes Anesthesia Complications: No Block Receding Appropriately: Yes Patient on Ventilator: No
[2020-04-17] MEDS: IBUPROFEN 600 MG TAB PO SCH ×2 (18:15→22:36)
[2020-04-18 07:51] LABS: Hematocrit 26.7 % (30.3-42.9)
[2020-04-18] MEDS: IBUPROFEN 600 MG TAB PO SCH ×3 (12:00→22:49)
[2020-04-18] MEDS: FERROUS SULFATE 325 MG TAB PO SCH ×2 (12:54→22:47)
--- NOTE | 2020-04-18 13:10 | Progress Note ---
Assessment and Plan A: day 1 S/P . Anemia. P: Supplement with oral iron. Anticipate discharge home tomorrow if patient continues to do well. Subjective - Subjective Date of service: 04/18/20 Principal diagnosis: day 1 S/P Patient reports: appetite normal, voiding normally, pain well controlled, flatus, ambulating normally, no dizzy ambulation, no nauseated : doing well Objective - Vital Signs Latest vital signs: Vital Signs Temp Pulse Resp BP BP Pulse Ox 04/18/20 12:39 98.2 F 82 18 134/76 99 04/18/20 08:03 98.0 F 85 18 138/83 98 04/18/20 00:15 98.7 F 95 H 20 105/62 97 04/17/20 22:43 88 136/84 04/17/20 20:15 98.6 F 88 16 139/85 98 04/17/20 17:34 98.2 F 80 20 145/80 96 04/17/20 16:40 88 94 04/17/20 16:39 93 H 96 04/17/20 16:34 98 H 138/83 96 04/17/20 16:29 74 97 04/17/20 16:24 97 H 97 04/17/20 16:19 70 141/85 97 04/17/20 16:14 85 97 04/17/20 16:13 98.7 F 83 16 137/76 04/17/20 16:12 79 137/76 04/17/20 16:09 92 H 96 04/17/20 15:54 79 99 04/17/20 15:49 77 165/86 98 04/17/20 15:44 65 99 04/17/20 15:39 67 99 04/17/20 15:34 76 158/75 98 04/17/20 15:29 71 99 04/17/20 15:24 69 97 04/17/20 15:20 74 159/81 04/17/20 14:53 94 H 217/100 04/17/20 14:21 76 158/77 04/17/20 14:00 98.2 F 18 04/17/20 13:52 74 159/82 04/17/20 13:48 78 172/90 04/17/20 13:40 71 175/88 04/17/20 13:23 72 210/98 Intake and Output 04/17/20 04/18/20 04/18/20 23:59 07:59 15:59 Intake Total 240 360 Balance 240 360 Intake: Oral 240 360 Other: Total, Intake Amount 240 240 # Voids Void 1 1 - Exam Cardiovascular: Present: Regular rate Lungs: Present: Clear to auscultation Abdomen: Present: normal appearance, soft, normal bowel sounds. Absent: distention, tenderness, guarding, rigidity Uterus: Present: normal, firm, fundal height below umbilicus. Absent: bogginess, tenderness Extremities: Present: normal. Absent: tenderness, edema - Labs Labs: Abnormal lab results 04/18/20 Range/Units 07:22 Hgb 9.0 L (10.1-14.3) gm/dl Hct 26.7 L (30.3-42.9) %
[2020-04-19] MEDS: IBUPROFEN 600 MG TAB PO SCH ×2 (04:00→11:58)
[2020-04-19] MEDS: FERROUS SULFATE 325 MG TAB PO SCH (10:05)
--- NOTE | 2020-04-19 11:22 | Progress Note ---
Assessment and Plan A: day 2 S/P . Anemia. Chronic hypertension. P: Discharge patient home today. Discussed with patient discharge in structions and warning signs. Advised patient to continue taking her vitamins and iron supplements at home. Advised patient to continue taking Labetalol at home (patient states she has plenty of Labetalol at home). Advised patient to avoid intercourse, lifting, heavy housework, driving. Advised patient to follow up at [facility] clinic in 2-3 days for a BP check. BP warning signs discussed with patient. Patient voiced understanding of all instructions. Subjective - Subjective Date of service: 04/19/20 Principal diagnosis: day 2 S/P Interval history: Patient requests discharge home today. Patient states she has vitamins, iron supplements, and Labetalol at home and states she will continue to take these medications as prescribed. Patient denies headache, chest pain, shortness of breath, leg pain, heavy bleeding, or any other problems. Patient reports: appetite normal, voiding normally, pain well controlled, flatus, ambulating normally, no dizzy ambulation, no nauseated [place]: doing well Objective - Vital Signs Latest vital signs: Vital Signs Temp Pulse Resp BP BP Pulse Ox 04/19/20 10:06 78 140/78 04/19/20 07:45 98 F 68 18 119/63 98 04/19/20 01:11 97.9 F 80 20 125/72 98 04/19/20 01:10 97.9 F 20 125/72 04/18/20 22:48 76 144/89 04/18/20 16:21 98.3 F 74 20 140/72 100 04/18/20 12:39 98.2 F 82 18 134/76 99 Intake and Output 04/18/20 04/19/20 04/19/20 23:59 07:59 15:59 Intake Total 840 960 Balance 840 960 Intake: Oral 480 960 Intake, Free Water 360 Other: Total, Intake Amount 240 240 # Voids Void 2 1 - Exam Cardiovascular: Present: Regular rate Lungs: Present: Clear to auscultation Abdomen: Present: normal appearance, soft. Absent: distention, tenderness, guarding, rigidity Uterus: Present: normal, firm, fundal height below umbilicus. Absent: bogginess, tenderness Extremities: Present: normal. Absent: tenderness, edema
--- NOTE | 2020-04-19 11:26 | Discharge Summary ---
Providers - Providers Date of Admission: 04/16/20 20:20 Date of discharge: 04/19/20 Attending physician: REYES TRACY MD Primary care physician: REYES TRACY MD Hospitalization Reason for admission: induction of labor Delivery: Episiotomy: none Laceration: none Other procedures: none complications: none Discharge diagnosis: IUP at term delivered [place] baby: female Pertinent studies: Labs Hospital course: Stable hospital course. Condition at discharge: Good Disposition: DC-01 TO HOME OR SELFCARE - Discharge Diagnoses (1) Term delivered Status: Acute (2) Anemia Status: Acute (3) Chronic hypertension Status: Acute Plan - Provider Discharge Summary Activity: no sex for 6 weeks, no heavy lifting 4 weeks, no strenuous exercise Diet: routine Instructions: routine Additional instructions: Continue taking your iron supplements, vitamins, and Labetalol at home as prescribed. Follow up at [facility] clinic in 2 days for a BP check. Call your doctor immediately for: * Fever > 100.5 * Heavy vaginal bleeding ( >1 pad per hour) * Severe persistent headache * Shortness of breath * Reddened, hot, painful area to leg or breast - Follow up plan Follow up: PRIMARY CARE, [Referring] - 48 Hours
[2020-04-19] MEDS ORDERED: medroxyPROGESTERone ACETATE 150 MG/ML SYRINGE IM ONE (12:12)
[2020-04-19 13:30] VITALS: BP 141/81
== END 2020-04-19 14:00 | disposition home or self-care (01) | DRG 774 ==
LOC: LD 20:20 → OB 04-17 17:09
PROVIDERS: ADMIT Obstetrics & Gynecology; ATTEND Obstetrics & Gynecology
PROC: 10E0XZZ Delivery of Products of Conception, External Approach (ICD-10-PCS; principal; 2020-04-17)
PROC: 3E033VJ Introduction of Other Hormone into Peripheral Vein, Percutaneous Approach (ICD-10-PCS; 2020-04-17)
PROC: 10907ZC Drainage of Amniotic Fluid, Therapeutic from Products of Conception, Via Natural or Artificial Opening (ICD-10-PCS; 2020-04-17)
PROC: 3E0R3BZ Introduction of Anesthetic Agent into Spinal Canal, Percutaneous Approach (ICD-10-PCS; 2020-04-17)
PROC: 00HU33Z Insertion of Infusion Device into Spinal Canal, Percutaneous Approach (ICD-10-PCS; 2020-04-17)
DX: O10.92 Unspecified pre-existing hypertension complicating childbirth (principal); O99.62 Diseases of the digestive system complicating childbirth; O99.02 Anemia complicating childbirth; Z20.822 Contact with and (suspected) exposure to COVID-19; K21.9 Gastro-esophageal reflux disease without esophagitis; O98.52 Other viral diseases complicating childbirth; B00.9 Herpesviral infection, unspecified; Z3A.37 37 weeks gestation of pregnancy; Z37.0 Single live birth; Z88.1 Allergy status to other antibiotic agents; Z79.899 Other long term (current) drug therapy
CPT/HCPCS: 36415; 76815; 76816; 76819; 80053; 81001; 82565; 82570; 82575; 84156; 84550; 85014; 85018; 85027; 86592; 86850; 86900; 86901; 96372; G0378; J0290; J0702; J1050; J2590; J7120; U0003

== ENCOUNTER 2021-08-23 07:04 | Emergency (ER) | payer MEDICAID ==
[2021-08-23 08:42] LABS: Hematocrit 37.9 % (30.3-42.9); Hemoglobin 12.7 gm/dl (10.1-14.3); Mean Corpuscular HGB Conc 33 % (30-34); Mean Corpuscular Volume 86 fl (79-97); Platelet Count 236 K/mm3 (140-440)
[2021-08-23] MEDS ORDERED: KETOROLAC 10 MG TAB PO ONE (11:00)
[2021-08-23 11:50] LABS: Bilirubin,Urine NEG (Negative); Blood,Urine LG (Negative); Color,Urine Yellow (Yellow); Mucus,Urine 1+ /HPF
--- NOTE | 2021-08-23 12:06 | Emergency Department Report ---
ED Abdominal Pain HPI - General Chief Complaint: Vaginal Bleeding Stated Complaint: CRAMPING Time Seen by Provider: 08/23/21 10:59 Source: patient Mode of arrival: Ambulatory Limitations: No Limitations - History of Present Illness Initial Comments: 41-year-old black female with a past medical history of hypertension presents to the emergency department for evaluation of vaginal bleeding and abdominal cramping that started at 3:00 this morning. She states that she has not had a period since May 31 and is concerned that she may be and having a miscarriage. She states that abdominal cramping is 6 out of 10. She denies fever, nausea, vomiting, diarrhea, dysuria, and vaginal discharge. MD Complaint: abdominal pain -: Sudden, hour(s) Location: LLQ, RLQ Radiation: none Migration to: no migration Severity scale (0 -10): 10 Quality: cramping Consistency: constant Associated Symptoms: denies: nausea, vomiting, diarrhea, fever, chills, dysuria, hematemesis, hematochezia, melena, hematuria, anorexia, syncope - Related Data Home Medications Medication Instructions Recorded Confirmed Last Taken NIFEdipine 30 mg PO DAILY 04/29/19 04/17/20 04/17/20 labetaloL [Labetalol 200mg TAB] 300 mg PO TID 04/29/19 04/17/20 04/17/20 Previous Rx's Medication Instructions Recorded Last Taken Type Ferrous Sulfate [Feosol 325 MG tab] 325 mg PO BID #60 tablet 11/07/17 04/17/20 Rx Vit Calc,Iron,Folic 1 each PO DAILY #30 tablet 11/07/17 04/17/20 Rx [ Vitamins] Ferrous Sulfate [Feosol 325 MG tab] 325 mg PO BID #60 tablet 05/02/19 04/17/20 Rx Ibuprofen [Motrin 600 MG tab] 600 mg PO Q6H #30 tablet 05/02/19 Unknown Rx NIFEdipine XL [Procardia Xl] 30 mg PO QDAY #30 tablet 05/02/19 Unknown Rx Vit-Fe Fumar-FA [ 1 each PO QDAY #30 tablet 05/02/19 04/17/20 Rx Vitamin] labetaloL [Labetalol 100mg TAB] 300 mg PO Q8HR #90 tablet 05/02/19 04/17/20 Rx Ketorolac [Toradol] 10 mg PO Q6H PRN #12 tab 08/23/21 Unknown Rx cephALEXin [Keflex] 500 mg PO BID #14 cap 08/23/21 Unknown Rx Allergies Allergy/AdvReac Type Severity Reaction Status Date / Time doxycycline Allergy Mild Hives Verified 04/18/19 21:13 ED Review of Systems ROS: Stated complaint: CRAMPING Other details as noted in HPI Comment: All other systems reviewed and negative Constitutional: denies: chills, fever Eyes: denies: vision change ENT: denies: congestion Respiratory: denies: cough, shortness of breath, SOB with exertion, SOB at rest, stridor, wheezing Cardiovascular: denies: chest pain, palpitations, dyspnea on exertion, orthopnea, edema, syncope, paroxysmal nocturnal dyspnea Gastrointestinal: abdominal pain. denies: nausea, vomiting, diarrhea, hematemesis, melena, hematochezia Genitourinary: denies: urgency, dysuria, frequency, hematuria, discharge Skin: denies: rash, lesions Neurological: denies: headache, weakness ED Past Medical Hx - Past Medical History Hx Hypertension: Yes (take labetalol 300mg bid) Hx Heart Attack/AMI: No Hx Congestive Heart Failure: No Hx Diabetes: No Hx Deep Vein Thrombosis: No Hx Liver Disease: No Hx Renal Disease: No Hx Sickle Cell Disease: No Hx Seizures: No Hx Asthma: No Hx COPD: No Hx HIV: No Additional medical history: depression - Surgical History Hx Pacemaker: No Hx Internal Defibrillator: No - Social History Smoking Status: Never Smoker Substance Use Type: None - Medications Home Medications: Home Medications Medication Instructions Recorded Confirmed Last Taken Type Ferrous Sulfate [Feosol 325 MG tab] 325 mg PO BID #60 tablet 11/07/17 04/17/20 04/17/20 Rx Vit Calc,Iron,Folic 1 each PO DAILY #30 tablet 11/07/17 04/17/20 04/17/20 Rx [ Vitamins] NIFEdipine 30 mg PO DAILY 04/29/19 04/17/20 04/17/20 History labetaloL [Labetalol 200mg TAB] 300 mg PO TID 04/29/19 04/17/20 04/17/20 History Ferrous Sulfate [Feosol 325 MG tab] 325 mg PO BID #60 tablet 05/02/19 04/17/20 04/17/20 Rx Ibuprofen [Motrin 600 MG tab] 600 mg PO Q6H #30 tablet 05/02/19 04/17/20 Unknown Rx NIFEdipine XL [Procardia Xl] 30 mg PO QDAY #30 tablet 05/02/19 04/17/20 Unknown Rx Vit-Fe Fumar-FA [ 1 each PO QDAY #30 tablet 05/02/19 04/17/20 04/17/20 Rx Vitamin] labetaloL [Labetalol 100mg TAB] 300 mg PO Q8HR #90 tablet 05/02/19 04/17/20 04/17/20 Rx Ketorolac [Toradol] 10 mg PO Q6H PRN #12 tab 08/23/21 Unknown Rx cephALEXin [Keflex] 500 mg PO BID #14 cap 08/23/21 Unknown Rx ED Physical Exam - General Limitations: No Limitations General appearance: alert, in no apparent distress - Head Head exam: Present: atraumatic, normocephalic - Eye Eye exam: Present: normal appearance. Absent: conjunctival injection - Neck Neck exam: Present: normal inspection, full ROM. Absent: tenderness, lymphadenopathy, thyromegaly - Respiratory Respiratory exam: Present: normal lung sounds bilaterally. Absent: respiratory distress, wheezes, rales, rhonchi, stridor, chest wall tenderness - Cardiovascular Cardiovascular Exam: Present: regular rate, normal heart sounds - GI/Abdominal GI/Abdominal exam: Present: soft, normal bowel sounds. Absent: distended, tenderness, guarding, rebound, rigid - Extremities Exam Extremities exam: Present: normal inspection, normal capillary refill. Absent: pedal edema, joint swelling, calf tenderness - Back Exam Back exam: Present: normal inspection. Absent: CVA tenderness (R), CVA tenderness (L), vertebral tenderness - Neurological Exam Neurological exam: Present: alert, oriented X3, normal gait - Psychiatric Psychiatric exam: Present: normal affect, normal mood - Skin Skin exam: Present: warm, dry, intact, normal color ED Course Vital Signs 08/23/21 08/23/21 07:12 12:10 Temperature 98.9 F 98.6 F Pulse Rate 83 81 Respiratory 16 16 Rate Blood Pressure 133/86 Blood Pressure 128/86 [Left] O2 Sat by Pulse 100 100 Oximetry - Reevaluation(s) Reevaluation #1: 08/23/21 12:48 Pain resolved after medication. ED Medical Decision Making - Lab Data Result diagrams: 08/23/21 08:10 - Medical Decision Making 41-year-old black female with a past medical history of hypertension presents to the emergency department for evaluation of vaginal bleeding and abdominal cramping that started at 3:00 this morning. She states that she has not had a period since May 31 and is concerned that she may be and having a miscarriage. She states that abdominal cramping is 6 out of 10. She denies fev er, nausea, vomiting, diarrhea, dysuria, and vaginal discharge. Urine positive for urinary tract infection. Serum test negative and H&H within normal limits. Patient will be treated with 7-day course of Keflex for UTI and given Toradol to use as needed for dysmenorrhea. She is advised to follow-up with [facility] or primary care provider for worsening symptoms. She is advised to return to the emergency department for any concerning symptoms. She verbalized understanding of and agreement with plan of care. Critical care attestation.: If time is entered above; I have spent that time in minutes in the direct care of this critically ill patient, excluding procedure time. ED Disposition Clinical Impression: Dysmenorrhea UTI (urinary tract infection) Qualifiers: Urinary tract infection type: acute cystitis Hematuria presence: with hematuria Qualified Code(s): N30.01 - Acute cystitis with hematuria Disposition: HOME / SELF CARE / HOMELESS Is pt being admited?: No Does the pt Need Aspirin: No Condition: Stable Instructions: Antibiotic Medicine, Adult, [id number], Urinary Tract Infection, Adult, [id number], Dysmenorrhea, [id number] Additional Instructions: Take medications as prescribed. Follow-up with primary care provider or [facility] if no improvement or worsening symptoms. Return to the emergency department as needed. Prescriptions: cephALEXin [Keflex] 500 mg PO BID #14 cap Ketorolac [Toradol] 10 mg PO Q6H PRN #12 tab PRN Reason: Pain Referrals: LUTHER PERDOMO MD [Staff Physician] - 3-5 Days [facility] [Provider Group] - 3-5 Days Forms: Work/School Release Form(ED) Time of Disposition: 12:06
[2021-08-23 12:12] VITALS: BP 128/86
== END 2021-08-23 12:10 | disposition home or self-care (01) ==
LOC: ED 07:04
DX: N94.6 Dysmenorrhea, unspecified (principal); N39.0 Urinary tract infection, site not specified; I10 Essential (primary) hypertension; F32.9 Major depressive disorder, single episode, unspecified; Z88.1 Allergy status to other antibiotic agents
CPT/HCPCS: 36415; 81001; 84702; 85027; 87086; 99283